=== PATIENT | female | born 1955 | race Caucasian/White ===

== ENCOUNTER 2020-02-23 12:23 | Inpatient (IN) | payer MEDICARE, MEDICAID, SELFPAY ==
[2020-02-23] VITALS (10 sets, daily range): BP systolic 80–133; BP diastolic 52–73; PULSE 91–108; RESP 16–18; TEMP 36.3–36.8; O2SAT 94–99; BMI 16.5
--- NOTE | 2020-02-23 13:02 | CTR_ITS ---
PROCEDURE INFORMATION: Exam: CT Chest Without Contrast Exam date and time: 02/23/2020 4:26 PM Age: 65 years old Clinical indication: Chest pain; Prior surgery; Additional info: ? Port infection TECHNIQUE: Imaging protocol: Computed tomography of the chest without contrast. Radiation optimization: All CT scans at this facility use at least one of these dose optimization techniques: automated exposure control; mA and/or kV adjustment per patient size (includes targeted exams where dose is matched to clinical indication); or iterative reconstruction. COMPARISON: No relevant prior studies available. RADIATION DOSE METRICS: Total DLP (mGy-cm): 303.69 FINDINGS: Tubes, catheters and devices: Right Infusaport catheter. Lungs: Densely consolidated segmental alveolar airspace disease posterior segment right upper lobe which could reflect pneumonia and/or atelectasis. Underlying neoplasm would be difficult to exclude with confidence. Evidence of left lower lobe and lingula bronchiolar disease with the tree in bud pattern consistent with either active or chronic bronchiolar disease. Small volume subsegmental consolidated alveolar airspace disease superior segment left lower lobe with air bronchograms which could reflect pneumonia and/or atelectasis. Noncalcified right lung pulmonary nodules the largest superior segment right lower lobe measuring approximately 13 mm in diameter. Concern for metastatic lung carcinoma. Advanced centrilobular emphysema. COPD/chronic bronchitis. Antecedent granulomatous disease. Pleural space: Unremarkable. No pneumothorax. No pleural effusion. Heart: Advanced 3 vessel coronary artery disease. No visible pericardial effusion. Cor pulmonale. Aorta: The thoracic aorta is nonaneurysmal. Moderate arterial sclerotic disease. Lymph nodes: Marginally prominent mediastinal lymph nodes. Bones/joints: Age-appropriate degenerative disease of the spine. Osteopenia/osteoporosis. No visible osteolytic or osteoblastic destructive process. Soft tissues: Cachexia. CT/CT chest wo con [id number] IMPRESSION: 1. Densely consolidated segmental alveolar airspace disease right upper lobe. 2. Left lower lobe and lingular bronchiolar disease. 3. Noncalcified right lung pulmonary nodules the largest superior segment right lower lobe with concern for metastatic lung carcinoma. 4. Subsegmental volume superior segment left lower lobe alveolar airspace disease. 5. Advanced centrilobular emphysema with COPD/chronic bronchitis. 6. Advanced 3 vessel coronary disease. 7. Cor pulmonale. 8. Cachexia. Radiation Dose CTDIVOL = (mGy): DLP = 303.69 (mGy-cm)
[2020-02-23 13:27] LABS: Basophils % 0.2 %; Eosinophils # 0.1 10^3/uL (0.0-0.8); Eosinophils % 0.4 %; Hematocrit 23.6 % (37.0-47.0); Hemoglobin 6.9 g/dL (11.5-15.3); Lymphocytes # 0.5 10^3/uL (0.8-4.8); Lymphocytes % 3.7 %; Mean Corpuscular HGB Conc 29.2 g/dL (30.0-36.0); Mean Corpuscular Hemoglobin 31.4 pg (28.0-34.0); Mean Corpuscular Volume 107.3 fL (81-99); Mean Platelet Volume 9.2 fL (7.4-10.4); Monocytes # 0.4 10^3/uL (0.2-0.9); Monocytes % 2.6 %; Neutrophils # 12.99 10^3/uL (1.8-7.7); Nucleated Red Blood Cells % 0 %; Platelet Count 152 10^3/cmm (130-400); Red Cell Distribution Width 20.3 % (12.1-15.1); White Blood Count 14.1 10^3/uL (4.0-10.0)
[2020-02-23 13:40] LABS: Alanine Aminotransferase < 5 U/L (0-33); Albumin Level 2.4 g/dL (3.5-5.2); Alkaline Phosphatase 154 IU/L (35-105); Anion Gap 14.8 (5-19); Aspartate Amino Transferase 7 U/L (0-32); Blood Urea Nitrogen 27 mg/dL (8-23); C Reactive Protein 162.6 mg/L (0.0-4.9); Calcium 8.1 mg/dL (8.5-10.5); Carbon Dioxide 22 mmol/L (22-29); Chloride 102 mmol/L (98-107); Globulin 4.7 g/dL (1.3-4.6); Glomerular Filtration Rate 23.6 mL/min (90-130); Glucose 109 mg/dL (65-115); Osmolality Calculated 282 mOsm/kg (285-295); Potassium 5.8 mmol/L (3.5-5.1); Sodium 133 mmol/L (136-145); Total Bilirubin 0.2 mg/dL (0.15-1.2); Total Protein 7.1 g/dL (6.6-8.7)
[2020-02-23 13:41] LABS: Lactate (Lactic Acid level) 1.8 mmol/L (0.5-2.2)
--- NOTE | 2020-02-23 15:57 | W.ED.SKABFB ---
HPI - Skin/Abscess/Foreign Bdy General: Chief complaint: Skin/Abscess/Foreign Body Stated complaint: POSSIBLE PORT INFECTION Time Seen by Provider: 02/23/20 12:31 Source: patient Mode of arrival: EMS Limitations: no limitations History of Present Illness: HPI narrative: Patient is a 65-year-old shelter resident with a history of lung cancer who was on chemotherapy until recently due to adverse effects of the chemotherapy. [facility] staff noticed that on the port that the patient has on her right chest wall there was erythema, pain, and erythema spreading along the track of the port. They were concerned about an infection so she was sent here to be evaluated. The patient denies a fever. Quality: burning Exacerbating factors: none Context: none Associated symptoms: Deny chills, fever(s), nausea or vomiting Review of Systems General: Reports: 10 or more systems reviewed and unremarkable except in HPI and below Const: Denies: fever(s), chills or body aches Eyes: Denies: change in vision or blurry vision ENMT: Denies: throat pain, enlarged tonsils, odynophagia, hoarseness, mouth pain or swelling of lips/tongue Card: Denies: palpitations, irregular heart rhythm, edema or swelling of feet/ankles Resp: Denies: dyspnea, productive cough or non-productive cough GI: Denies: abdominal pain, nausea or vomiting : Denies: flank pain, difficulty voiding, dysuria, urinary frequency, urinary urgency or urinary hesitancy Musc: Denies: neck pain, back pain or extremity swelling Skin/Breast: Reports: erythema and skin tenderness; Denies: rash or pruritus Neuro: Denies: headache(s), numbness in extremities or weakness in extremities Endo: Denies: polyuria, polydipsia or tired all the time Physical Exam Const: COMMON NORMALS: no acute distress, average body habitus, patient oriented x3, no limitations, healthy appearing, alert and well nourished HENMT: COMMON NORMALS: normocephalic, atraumatic and moist oral mucous membranes HEAD & SCALP: normocephalic and atraumatic Neck/C-Spine: COMMON NORMALS: no meningeal signs and no JVD Chest: OTHER: Central venous port on her right upper chest wall erythematous, with red streaking along the path of the cath toward her clavicle. It is tender, but no drainage noted. Resp: COMMON NORMALS: normal respiratory effort, No retractions, No use of accessory muscles, clear to auscultation bilaterally and percussion normal AUSCULTATION: clear to auscultation bilaterally PERCUSSION: percussion normal Cardio: COMMON NORMALS: no JVD, regular rate, regular rhythm, S1 normal heart sound present, S2 normal heart sound present, No gallops present (Cardio), No clicks present (Cardio), No murmurs present (Cardio), No rub (Cardio) and Peripheral pulses 2+ throughout RATE: regular rate RHYTHM: regular rhythm HEART SOUNDS: S1 normal heart sound present and S2 normal heart sound present PERIPHERAL PULSES: Peripheral pulses 2+ throughout GI: COMMON NORMALS: Normal to inspection, nondistended, normoactive bowel sounds present, Soft to palpation, non-tender, No hepatosplenomegaly present, no masses and no bruits PALPATION: Yes Soft to palpation and Yes No hepatosplenomegaly present Extremity: COMMON NORMALS: normal to inspection, full ROM, capillary refill normal, no calf tenderness and no pedal edema Neuro: COMMON NORMALS: patient oriented x3 SENSORIUM/ORIENTATION: Yes alert MENINGEAL SIGNS: Yes no meningeal signs Skin: COMMON NORMALS: no rashes or lesions noted, no wounds, turgor normal, no jaundice, no petechiae and no mottling GENERAL SKIN EXAM: no rashes or lesions noted and turgor normal Course ED course: Patient with what appears to be a central venous catheter infection. She has a leukocytosis, but is not septic. During her stay in the emergency department she had some delirium and needed some intramuscular antipsychotic to calm her down. She was given a dose of intravenous vancomycin. She is admitted for further evaluation and management. Consultations: Consultation #1: Dr. Lopez, hospitalist. She kindly accepted patient to her service Vital Signs: Vital signs: Vital Signs Temperature 97.4 F L 02/23/20 22:34 Pulse Rate 102 H 02/23/20 22:34 Respiratory Rate 18 02/23/20 22:34 Blood Pressure 88/55 02/23/20 22:34 Pulse Oximetry 98 02/23/20 22:34 MDM - Skin/Abscess/Foreign Bdy MDM Narrative: Medical decision making narrative: Patient with a central venous catheter infection. And who is admitted for further evaluation and management. She had an episode of delirium in the emergency department but it was well controlled with intramuscular Zyprexa. Evaluation also shows that he has pneumonia, and she was also severely anemic requiring blood transfusion. Medical Records: Attestation: I reviewed the patient's medical records. Lab Data: Attestation: I reviewed the patient's lab results. Labs: Lab Results 02/23/20 02/23/20 02/23/20 Range/Units 13:15 13:15 13:15 WBC 14.1 H (4.0-10.0) 10^3/ uL RBC 2.20 L (4.1-5.3) 10^6/u L Hgb 6.9 L (11.5-15.3) g/dL Hct 23.6 L (37.0-47.0) % MCV 107.3 H (81-99) fL MCH 31.4 (28.0-34.0) pg MCHC 29.2 L (30.0-36.0) g/dL RDW 20.3 H (12.1-15.1) % Plt Count 152 (130-400) 10^3/c mm MPV 9.2 (7.4-10.4) fL Neut % (Auto) 92.0 % Lymph % (Auto) 3.7 % Hopkins % (Auto) 2.6 % Eos % (Auto) 0.4 % Baso % (Auto) 0.2 % Neut # (Auto) 12.99 H (1.8-7.7) 10^3/u L Lymph # (Auto) 0.5 L (0.8-4.8) 10^3/u L Hopkins # (Auto) 0.4 (0.2-0.9) 10^3/u L Eos # (Auto) 0.1 (0.0-0.8) 10^3/u L Baso # (Auto) 0.0 (0.0-0.1) 10^3/u L Nucleated RBC % (a uto) 0 % Nucleated RBCs # 0.0 /100WBC Sodium 133 L (136-145) mmol/L Potassium 5.8 H (3.5-5.1) mmol/L Chloride 102 (98-107) mmol/L Carbon Dioxide 22 (22-29) mmol/L Anion Gap 14.8 (5-19) BUN 27 H (8-23) mg/dL Creatinine 2.1 H (0.5-0.9) mg/dL GFR Calculation 23.6 L (90-130) mL/min Glucose 109 (65-115) mg/dL Calculated Osmolal ity 282 L (285-295) mOsm/k g Lactate 1.8 (0.5-2.2) mmol/L Calcium 8.1 L (8.5-10.5) mg/dL Total Bilirubin 0.2 (0.15-1.2) mg/dL AST 7 (0-32) U/L ALT < 5 (0-33) U/L Alkaline Phosphata se 154 H (35-105) IU/L C-Reactive Protein 162.6 H (0.0-4.9) mg/L Total Protein 7.1 (6.6-8.7) g/dL Albumin 2.4 L (3.5-5.2) g/dL Globulin 4.7 H (1.3-4.6) g/dL Blood Type Rho(D) Type Antibody Screen Crossmatch 02/23/20 Range/Units 16:48 WBC (4.0-10.0) 10^3/ uL RBC (4.1-5.3) 10^6/u L Hgb (11.5-15.3) g/dL Hct (37.0-47.0) % MCV (81-99) fL MCH (28.0-34.0) pg MCHC (30.0-36.0) g/dL RDW (12.1-15.1) % Plt Count (130-400) 10^3/c mm MPV (7.4-10.4) fL Neut % (Auto) % Lymph % (Auto) % Hopkins % (Auto) % Eos % (Auto) % Baso % (Auto) % Neut # (Auto) (1.8-7.7) 10^3/u L Lymph # (Auto) (0.8-4.8) 10^3/u L Hopkins # (Auto) (0.2-0.9) 10^3/u L Eos # (Auto) (0.0-0.8) 10^3/u L Baso # (Auto) (0.0-0.1) 10^3/u L Nucleated RBC % (a uto) % Nucleated RBCs # /100WBC Sodium (136-145) mmol/L Potassium (3.5-5.1) mmol/L Chloride (98-107) mmol/L Carbon Dioxide (22-29) mmol/L Anion Gap (5-19) BUN (8-23) mg/dL Creatinine (0.5-0.9) mg/dL GFR Calculation (90-130) mL/min Glucose (65-115) mg/dL Calculated Osmolal ity (285-295) mOsm/k g Lactate (0.5-2.2) mmol/L Calcium (8.5-10.5) mg/dL Total Bilirubin (0.15-1.2) mg/dL AST (0-32) U/L ALT (0-33) U/L Alkaline Phosphata se (35-105) IU/L C-Reactive Protein (0.0-4.9) mg/L Total Protein (6.6-8.7) g/dL Albumin (3.5-5.2) g/dL Globulin (1.3-4.6) g/dL Blood Type A Positive Rho(D) Type Positive Antibody Screen Negative Crossmatch See Detail Imaging Data^: CT Chest: Attestation: I personally reviewed and interpreted this imaging study as follows: Radiologist's impression: [place] [address] CT Scan Report Signed Patient: Jerica Whitley AUnit #: [id number] : 4Acct#:[id number] Age/Sex: 65 / FADM Date: 02/23/20 Loc: [facility]/Bed: Attending Dr: Ordering Provider/Ordering MD: Demi Saavedra MD, [facility] [place] Date of Service: 02/23/20 Procedure(s): CT chest con [id number] Accession Number(s): [id number] Report Number: [id number] PROCEDURE INFORMATION: Exam: CT Chest Without Contrast Exam date and time: 02/23/2020 4:26 PM Age: 65 years old Clinical indication: Chest pain; Prior surgery; Additional info: ? Port infection TECHNIQUE: Imaging protocol: Computed tomography of the chest without contrast. Radiation optimization: All CT scans at this facility use at least one of these dose optimization techniques: automated exposure control; mA and/or kV adjustment per patient size (includes targeted exams where dose is matched to clinical indication); or iterative reconstruction. COMPARISON: No relevant prior studies available. RADIATION DOSE METRICS: Total DLP (mGy-cm): 303.69 FINDINGS: Tubes, catheters and devices: Right Infusaport catheter. Lungs: Densely consolidated segmental alveolar airspace disease posterior segment right upper lobe which could reflect pneumonia and/or atelectasis. Underlying neoplasm would be difficult to exclude with confidence. Evidence of left lower lobe and lingula bronchiolar disease with the tree in bud pattern consistent with either active or chronic bronchiolar disease. Small volume subsegmental consolidated alveolar airspace disease superior segment left lower lobe with air bronchograms which could reflect pneumonia and/or atelectasis. Noncalcified right lung pulmonary nodules the largest superior segment right lower lobe measuring approximately 13 mm in diameter. Concern for metastatic lung carcinoma. Advanced centrilobular emphysema. COPD/chronic bronchitis. Antecedent granulomatous disease. Pleural space: Unremarkable. No pneumothorax. No pleural effusion. Heart: Advanced 3 vessel coronary artery disease. No visible pericardial effusion. Cor pulmonale. Aorta: The thoracic aorta is nonaneurysmal. Moderate arterial sclerotic disease. Lymph nodes: Marginally prominent mediastinal lymph nodes. Bones/joints: Age-appropriate degenerative disease of the spine. Osteopenia/osteoporosis. No visible osteolytic or osteoblastic destructive process. Soft tissues: Cachexia. CT/CT chest wo con [id number] IMPRESSION: 1. Densely consolidated segmental alveolar airspace disease right upper lobe. 2. Left lower lobe and lingular bronchiolar disease. 3. Noncalcified right lung pulmonary nodules the largest superior segment right lower lobe with concern for metastatic lung carcinoma. 4. Subsegmental volume superior segment left lower lobe alveolar airspace disease. 5. Advanced centrilobular emphysema with COPD/chronic bronchitis. 6. Advanced 3 vessel coronary disease. 7. Cor pulmonale. 8. Cachexia. Radiation Dose CTDIVOL = (mGy): DLP = 303.69 (mGy-cm) Dictated By:Erlin Ramos Signed By:Erlin RamosSigned Date/Time:02/23/205 DD/ Discharge Plan Discharge Patient Disposition: Admitted As Inpatient Admit Provider: Shila Lopez Clinical Impression: Metastasis from cervical cancer Infection of central venous catheter Qualifiers: Encounter type: initial encounter Qualified Code(s): T80.219A - Unspecified infection due to central venous catheter, initial encounter Pneumonia Qualifiers: Pneumonia type: due to unspecified organism Laterality: right Lung location: upper lobe of lung Qualified Code(s): J18.9 - Pneumonia, unspecified organism Condition: Stable Coding Level of Care Code ED Bailing Machine Operator for Riky Mortensen
--- NOTE | 2020-02-23 16:32 | PC.NURSE ---
patient getting very agitated emd informed and orders recieved
[2020-02-23] MEDS: OLANZapine 10 mg VIAL IM (16:37)
[2020-02-23] MEDS: vancomycin 750 MG in sodium chloride 0.9% 250 ML 250 MG IV (16:48)
--- NOTE | 2020-02-23 19:04 | PC.NURSE ---
only 5 mg zyprexa given
--- NOTE | 2020-02-23 22:38 | PC.NURSE ---
1 unit leukocyte poor rbc infusing attempt to call daughter met with answering machine no message left
--- NOTE | 2020-02-23 23:59 | PM.HP ---
Providers/Chief Complaint Admitting Physician: Shila Lopez MD Chief Complaint: POSSIBLE PORT INFECTION History of Present Illness Jerica Whitley is a 65 year old female who was sent from [facility] to the emergency room due to concern about possibility of an infected Port-A-Cath. I am not really able to get much specific information from her. I did call the facility and spoke with the nurse. This nurse had worked with the patient over the weekend. Mrs. Whitley evidently began to get more confused over the weekend. At that time her Port-A-Cath seemed to be okay. Today it was noted that she had some red streaks around the site prompting the visit to the emergency room. While she was not seen at [facility] today I am not entirely clear. She has never been hospitalized here before. I did request that the records available at [facility] be sent and I have had an opportunity to review them. There are some clear inaccuracies in the records, such as documentation of normal skin when she has obvious wounds that have been around for a while. Nursing staff reports that she is able to feed herself a soft mechanical diet. She requires assistance with pretty much all the rest of her ADLs. She has been needing a Sherley lift for some time but within the last week or so had been able to get up a few times without. She came to [facility] I believe around 26 January. From what I can gather patient has a history of cervical cancer. She had previously been on treatment but there are notations that treatment was stopped in April. I do not know if that was because a course of treatment was completed or if it was decided not to continue it. She evidently had repeat PET scanning done in the early part of the year however that showed evidence of metastatic disease to lung and bone. I have records from biopsy of the lung mass done in December of this year though I did not see the actual results. It looks like she was started on chemotherapy after that and had an admission at [facility] for chemotherapy-induced pancytopenia. She required transfusion of blood during that hospital stay and was deconditioned and after that she went to [facility] after that. According to the nurse at [facility] she had an appointment scheduled with oncologist in [place] tomorrow. I was able to find that she was to be seen at the [facility] women's oncology on February 23 at 8:30 in the morning. Looks like she was planned to have an infusion after that which I am suspecting was for chemotherapy. The nurse I spoke to briefly at [facility] stated that she had not had any chemotherapy that that nurse was aware of since arriving at [facility] though I do not have a way to confirm that currently. Information documented here is from available records as patient really cannot provide anything currently. Review of Systems General: Reports: ROS unobtainable due to mental status Medications/Allergies Home Medications Medication Instructions Recorded Confirmed Last Taken Type Magic Mouthwash 15 ml PO TID PRN 02/23/20 02/24/20 Unknown History Morphine Sulfate Anna 20mg/Ml 0.2 ml PO Q4H PRN 02/23/20 02/23/20 Unknown History atorvastatin [Lipitor] 80 mg PO BEDTIME 02/23/20 02/23/20 02/22/20 History cholecalciferol (vitamin D3) 10 mcg PO DAILY 02/23/20 02/23/20 02/23/20 History [Vitamin D3] ferrous sulfate 325 mg PO BID 02/23/20 02/23/20 02/23/20 History fluticasone propionate [Flonase 2 spray INTRANASAL DAILY 02/23/20 02/23/20 02/23/20 History Allergy Relief] isosorbide mononitrate 15 mg PO DAILY 02/23/20 02/23/20 02/23/20 History loperamide [Imodium A-D] 2 mg PO Q6H PRN 02/23/20 02/23/20 Unknown History lorazepam [Lorazepam Intensol] See Rx Instructions .ROUTE .COMPLEX 02/23/20 02/23/20 Unknown History magnesium oxide [MagOx] 400 mg PO BID 02/23/20 02/23/20 02/23/20 History nitroglycerin [Nitrostat] 0.4 mg SUBLINGUAL Q5M PRN 02/23/20 02/23/20 Unknown History ondansetron HCl [Zofran] 4 mg PO Q4H PRN 02/23/20 02/23/20 Unknown History polyethylene glycol 3350 [Miralax] 17 g PO Q3D 02/23/20 02/23/20 02/22/20 History potassium chloride 20 meq PO DAILY 02/23/20 02/23/20 02/23/20 History sulfamethoxazole-trimethoprim 0.5 tab PO BID 02/23/20 02/23/20 02/23/20 History [Bactrim DS] tramadol 50 mg PO Q6H 02/23/20 02/23/20 02/23/20 History trazodone 50 mg PO BEDTIME 02/23/20 02/23/20 02/22/20 History Allergies Allergy/AdvReac Type Severity Reaction Status Date / Time acetaminophen [From Tylenol] Allergy ADR-Halluci Verified 02/23/20 12:35 nating cefepime Allergy Unknown Verified 02/23/20 12:35 Summit And Derivatives Allergy ADR-Vomitin Verified 02/23/20 12:35 g Penicillins Allergy ALGY-Swell Verified 02/23/20 12:35 Lip/Tongue/Throat piperacillin [From Zosyn] Allergy ADR-Halluci Verified 02/23/20 12:35 nating tazobactam [From Zosyn] Allergy ADR-Halluci Verified 02/23/20 12:35 nating dupree pepper Allergy ALGY-Swell Uncoded 02/23/20 12:35 Lip/Tongue/Throat blue cheese Allergy ALGY-Swell Uncoded 02/23/20 12:35 Lip/Tongue/Throat C-500 Allergy Unknown Uncoded 02/23/20 12:35 PFSH Acute PFSH: Medical History Antineoplastic chemotherapy induced pancytopenia CAD (coronary artery disease) Cervical cancer Chronic kidney disease Diabetes mellitus, type II Unclear if this is an active or accurate diagnosis but was listed in available records History of anesthesia complications History of osteomyelitis History of paroxysmal supraventricular tachycardia History of radiation therapy Hyperlipidemia Hypertension Iron deficiency anemia Peripheral arterial disease With history of critical limb ischemia requiring intervention although details are not known Surgical History Amputation of one or more toes All the toes on right foot History of colonoscopy (~05/2019) History of esophagogastroduodenoscopy (EGD) (~05/2019) History of lung biopsy (~12/2019) History of partial mastectomy History of rectal surgery History of vaginal surgery Details not clear presently but has had multiple vaginal procedures. Do not see clear evidence of hysterectomy and available records Port-A-Cath in place (~10/2019) Social History [facility] Information: Other than knowing patient resides in a group home, social and family history not otherwise able to be obtained presently Vitals/I&O/Wt Last Vital Signs Temp 97.5 F L 02/23/20 23:41 Pulse 98 02/23/20 23:41 Resp 17 02/23/20 23:41 BP 113/67 02/23/20 23:41 Pulse Ox 99 02/23/20 23:41 02/23/20 02/23/20 02/24/20 14:59 22:59 06:59 Intake Total 0 / 0 Balance 0 / 0 Weight last 48 hrs Weight 43.636 kg Physical Exam Const: OTHER: Patient is awake and will open eyes. She follows commands but is not able to answer questions. She says I do not know to everything. She complains of pain anywhere she is touched. HENMT: OTHER: Alopecia noted, some bitemporal wasting but otherwise normocephalic, dry mucous membranes, no oral ulcers noted presently Eye: OTHER: Pupils are reactive, conjunctive are not inflamed Neck/C-Spine: OTHER: Supple, no lymphadenopathy Chest: OTHER: Port-A-Cath is in place in the right upper chest. Just above the Port-A-Cath access area there is a scab. The scab is loose and underneath the scab you can actually see through the skin the actual Port-A-Cath device. It has not been accessed. I am not able to express any purulent material from around here but it is erythematous with evidence of recent desquamation over the Port-A-Cath and up the neck. There is a red streak outlining the device area which is palpable that goes up into the neck. I do not see any other red streaks elsewhere. The erythema is not that warm to touch. Resp: OTHER: Clear to auscultation bilaterally without any rales or rhonchi noted, no accessory muscle use Cardio: OTHER: Regular rate and rhythm, no murmurs gallops or rubs. Pulses equal throughout GI: OTHER: Abdomen soft, nontender, nondistended with positive bowel sounds : OTHER: Deferred Extremity: NARRATIVE EXTREMITY EXAM: No cyanosis, clubbing or edema, no acute synovitis Neuro: OTHER: Moves all extremities, speech is clear although answers to questions are not appropriate Psych: OTHER: Confused Skin: OTHER: Open ulceration with granulation tissue on the lateral aspect of the left ankle approximately a centimeter in diameter. Had foam dressing covered with OPTi foam on it. The area under the OPTi foam is red in a square pattern with slight warmth. No drainage is noted from this site. There is no red streaks beyond the area of the Square OPTi foam pad. On the right foot patient has bruising about 2.5-3 cm in diameter to the heel as well as a small approximately 1-1/2 cm diameter area of bruising on the lateral aspect of the right foot where it ends. There is 1/2 cm area of ecchymosis on the distal end of the first phalanx or rather where the first phalanx would be. Data : 02/23/20 13:15 02/23/20 13:15 Other Labs: Laboratory Tests 02/23/20 02/23/20 02/23/20 13:15 13:15 13:15 Neut # (Auto) 12.99 H Lactate 1.8 Calcium 8.1 L Total Bilirubin 0.2 AST 7 ALT < 5 Alkaline Phosphatase 154 H Albumin 2.4 L Micro: Microbiology 02/23/20 13:10 Blood Culture - Preliminary Blood SPECIMEN COLLECTED 02/23/20 13:15 Blood Culture - Preliminary Blood SPECIMEN COLLECTED A&P Assessment and plan (1) Acute encephalopathy: Multifactorial with combination of metabolic and possibly toxic encephalopathy prior to presenting to the emergency room. She received doses of Ativan and Geodon in the emergency room which may have further impacted mental status and cognition. From what I can gather the confusion is new. Available records do not indicate any evidence of intracranial metastases. Status: Acute (2) Infection due to Port-A-Cath: It was reported to me by nursing staff that the redness just appeared today. On examination however there is evidence of desquamation and there is also scabbing above the Port-A-Cath insertion site. I do not think that what ever is going on at the Port-A-Cath site is new. I am able to visualize the Port-A-Cath behind the scab that is present. No purulence is noted in this opening. The site has not been accessed thus far. Review of records from [facility] shows that she has required midline catheter placement multiple times. It looks like the Port-A-Cath was placed in October of this year. I presume it was done at [facility] though do not have confirmation of this. Status: Acute Qualifiers: Encounter type: initial encounter Qualified Code(s): T80.219A - Unspecified infection due to central venous catheter, initial encounter (3) Acute kidney injury: In a patient with a history of chronic kidney disease. I suspect she has chronic kidney disease stage II though it may be stage III at baseline. Most recently available comparative labs showed BUN and creatinine 23/1.47 on January 23. Clinically she appears dry. I am not able to verify when last chemotherapy was but she could have a change related to that. She has been on Bactrim according to facility records which might account for the acute kidney injury and hyperkalemia apart from everything else. Status: Acute (4) Macrocytic anemia: With drop from baseline. Most recent comparative labs from February 04 showed hemoglobin of 7.9 and hematocrit of 24. At that time patient was still recovering from chemotherapy induced pancytopenia, with improved H&H, platelet count and white blood count. Platelet count is currently acceptable and white count is further elevated. I do not have sufficient information to know when her last chemotherapy was though I do have indication that next planned transfusion was for tomorrow. Status: Acute (5) Ulcer of left ankle: Presumably has been present for some time as records from earlier this year at [facility] indicate that she has a known history of osteomyelitis of the ankle in December of this year. Those records indicate the right ankle but I do not see wounds on the right ankle and assume it should have been left. I do not have any evidence of work-up or evaluation around this otherwise. I am somewhat wondering if this location was an area in which bony metastases was suspected although it would be a bit odd. I just found it strange that on records about her lung biopsy was where I was able to most clearly find that the osteomyelitis of the ankle was A, present and B, had been previously identified. From what we can gather she has been getting PolyMem silver to the wound at the facility. This was present on admission Status: Chronic Qualifiers: Non-pressure ulcer stage: unspecified non-pressure ulcer stage Qualified Code(s): L97.329 - Non-pressure chronic ulcer of left ankle with unspecified severity (6) Cervical cancer: Status: Chronic Qualifiers: Malignant neoplasm of cervix location: unspecified location Qualified Code(s): C53.9 - Malignant neoplasm of cervix uteri, unspecified (7) Moderate protein-calorie malnutrition: Status: Chronic (8) Hypertension: Chronically on isosorbide Status: Chronic Qualifiers: Hypertension type: unspecified Qualified Code(s): I10 - Essential (primary) hypertension (9) Hyperlipidemia: Looks to chronically be on statin therapy Status: Chronic Qualifiers: Hyperlipidemia type: unspecified Qualified Code(s): E78.5 - Hyperlipidemia, unspecified (10) Diabetes mellitus, type II: Diagnosis and patient records from [facility] although he does not appear to be on treatment. Blood sugars are currently acceptable level. I do not know if treatment was stopped because of her cancer or because of loss of weight and other clinical conditions or if diabetes is actually entered in error on records from outside source. 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 Diabetes mellitus complication status: with kidney complications Diabetes mellitus complication detail: with chronic kidney disease Chronic kidney disease stage: unspecified stage Qualified Code(s): E11.22 - Type 2 diabetes mellitus with diabetic chronic kidney disease (11) History of MRSA infection: Status: Chronic Additional A&P Information Several areas of bruising, decubiti on the right foot present on admission History of coronary artery disease and what looks to be severe peripheral arterial disease primarily of the right lower extremity although details of either are not currently known. Inpatient admission IV antibiotics with vancomycin and Levaquin currently As were collected in the emergency room although I am not sure if any were collected directly from the Port-A-Cath site Will discuss with surgery to take a look at the Port-A-Cath site and give their opinion about the open area through which I can see the Port-A-Cath material Wound care is to continue to the left ankle ulceration with equivalent of PolyMem silver and OPTi foam Need to keep right foot elevated off of bed in addition to the left Check urinalysis IV fluids Transfusion of packed red blood cells was started in the emergency room Serial neuro exams Fall precautions Sliding scale insulin and Accu-Cheks given reported history of diabetes although does not look like she will need any now Try to minimize further sedating medications as able however with known chronic pain related to her cancer will keep her on some as needed medications Continue home statin therapy although I have held isosorbide currently with current blood pressures as they are Recheck laboratory studies Need to see if we can get in touch with the women's oncology clinic tomorrow to get more details during the daytime hours when the clinics open. The phone number there looks to be [phone]. Supportive care otherwise Allow natural as per paperwork from [facility] for DVT prophylaxis, no pharmacological DVT prophylaxis secondary to anemia Need to make sure that we are in line with plans of care going forward room and get a chance to speak to her daughters who have power of business attorney Attestations Medical Necessity Statement*: Anticipated stay greater than 2 midnights in a patient with known cancer presenting with encephalopathy. She reportedly normally can feed herself and answer questions appropriately what she cannot do at the moment. I suspect that this is multifactorial in nature stemming from acute kidney injury possibly related to treatment with Bactrim plus or minus an acute infection in the setting of her chronic medical issues. 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
[2020-02-24] VITALS (15 sets, daily range): BP systolic 90–130; BP diastolic 56–78; PULSE 69–102; RESP 12–18; TEMP 36.1–36.9; O2SAT 94–100
[2020-02-24] MEDS: sodium chloride 0.9% 1,000 ML 100 ML IV ×2 (01:10→18:27)
[2020-02-24] MEDS: TRAMadol 50 mg Tablet PO (01:10)
--- NOTE | 2020-02-24 03:42 | PC.PHAR ---
Vancomycin is dosed at 750mg IVPB every 48 hours to produce a predicted trough level of 15.27 (population based pharmacokinetic analysis). A trough level has been ordered from the lab to be obtained before the third dose to confirm and adjust if needed.
[2020-02-24 06:04] LABS: Basophils % 0.3 %; Eosinophils # 0.1 10^3/uL (0.0-0.8); Eosinophils % 0.5 %; Hematocrit 27.6 % (37.0-47.0); Hemoglobin 8.1 g/dL (11.5-15.3); Lymphocytes # 0.7 10^3/uL (0.8-4.8); Lymphocytes % 5.8 %; Mean Corpuscular HGB Conc 29.3 g/dL (30.0-36.0); Mean Corpuscular Hemoglobin 29.9 pg (28.0-34.0); Mean Corpuscular Volume 101.8 fL (81-99); Mean Platelet Volume 9.2 fL (7.4-10.4); Monocytes # 0.4 10^3/uL (0.2-0.9); Monocytes % 3.5 %; Neutrophils # 10.37 10^3/uL (1.8-7.7); Neutrophils % 89.1 %; Nucleated Red Blood Cells % 0 %; Platelet Count 127 10^3/cmm (130-400); Red Blood Count 2.71 10^6/uL (4.1-5.3); Red Cell Distribution Width 23.2 % (12.1-15.1); White Blood Count 11.6 10^3/uL (4.0-10.0)
--- NOTE | 2020-02-24 06:11 | PM.CONSULT ---
Providers/Reason For Consult Consulting Physican/Specialty*: Reji Keller MD Reason for Consult*: Infection related to right upper chest Port-A-Cath Attending Physician: Shila Lopez MD History of Present Illness History of Present Illness Chief Complaint: Problem with the port History of present illness: Ms Jerica Whitley is a 65 year old female had Port-A-Cath placed in [facility] back in October 2019 for chemotherapy related to her cervical cancer. Patient currently is not receiving any chemotherapy and apparently over the past week it got infected and patient is a senior living resident currently, and to my understanding patient got confused over the weekend. She was admitted on the hospitalist service for further care. Not much history obtained from the patient currently. CT scan of the chest showed: Lungs: Densely consolidated segmental alveolar airspace disease posterior segment right upper lobe which could reflect pneumonia and/or atelectasis. Underlying neoplasm would be difficult to exclude with confidence. Evidence of left lower lobe and lingula bronchiolar disease with the tree in bud pattern consistent with either active or chronic bronchiolar disease. Small volume subsegmental consolidated alveolar airspace disease superior segment left lower lobe with air bronchograms which could reflect pneumonia and/or atelectasis. Noncalcified right lung pulmonary nodules the largest superior segment right lower lobe measuring approximately 13 mm in diameter. Concern for metastatic lung carcinoma. Advanced centrilobular emphysema. COPD/chronic bronchitis. Antecedent granulomatous disease. Pleural space: Unremarkable. No pneumothorax. No pleural effusion. Heart: Advanced 3 vessel coronary artery disease. No visible pericardial effusion. Cor pulmonale. Aorta: The thoracic aorta is nonaneurysmal. Moderate arterial sclerotic disease. Lymph nodes: Marginally prominent mediastinal lymph nodes. Bones/joints: Age-appropriate degenerative disease of the spine. Osteopenia/osteoporosis. No visible osteolytic or osteoblastic destructive process. Soft tissues: Cachexia. CT/CT chest wo con [id number] IMPRESSION: 1. Densely consolidated segmental alveolar airspace disease right upper lobe. 2. Left lower lobe and lingular bronchiolar disease. 3. Noncalcified right lung pulmonary nodules the largest superior segment right lower lobe with concern for metastatic lung carcinoma. 4. Subsegmental volume superior segment left lower lobe alveolar airspace disease. 5. Advanced centrilobular emphysema with COPD/chronic bronchitis. 6. Advanced 3 vessel coronary disease. 7. Cor pulmonale. 8. Cachexia. Review of Systems General: Reports: 10 or more systems reviewed and unremarkable except in HPI and below Meds/Allergies Home Medications and Allergies Home Medications Medication Instructions Recorded Confirmed Last Taken Type Magic Mouthwash 15 ml PO TID PRN 02/23/20 02/24/20 Unknown History Morphine Sulfate Anna 20mg/Ml 0.2 ml PO Q4H PRN 02/23/20 02/23/20 Unknown History atorvastatin [Lipitor] 80 mg PO BEDTIME 02/23/20 02/23/20 02/22/20 History cholecalciferol (vitamin D3) 10 mcg PO DAILY 02/23/20 02/23/20 02/23/20 History [Vitamin D3] ferrous sulfate 325 mg PO BID 02/23/20 02/23/20 02/23/20 History fluticasone propionate [Flonase 2 spray INTRANASAL DAILY 02/23/20 02/23/20 02/23/20 History Allergy Relief] isosorbide mononitrate 15 mg PO DAILY 02/23/20 02/23/20 02/23/20 History loperamide [Imodium A-D] 2 mg PO Q6H PRN 02/23/20 02/23/20 Unknown History lorazepam [Lorazepam Intensol] See Rx Instructions .ROUTE .COMPLEX 02/23/20 02/23/20 Unknown History magnesium oxide [MagOx] 400 mg PO BID 02/23/20 02/23/20 02/23/20 History nitroglycerin [Nitrostat] 0.4 mg SUBLINGUAL Q5M PRN 02/23/20 02/23/20 Unknown History ondansetron HCl [Zofran] 4 mg PO Q4H PRN 02/23/20 02/23/20 Unknown History polyethylene glycol 3350 [Miralax] 17 g PO Q3D 02/23/20 02/23/20 02/22/20 History potassium chloride 20 meq PO DAILY 02/23/20 02/23/20 02/23/20 History sulfamethoxazole-trimethoprim 0.5 tab PO BID 02/23/20 02/23/20 02/23/20 History [Bactrim DS] tramadol 50 mg PO Q6H 02/23/20 02/23/20 02/23/20 History trazodone 50 mg PO BEDTIME 0902/23/20 02/22/20 History Allergies Allergy/AdvReac Type Severity Reaction Status Date / Time acetaminophen [From Tylenol] Allergy ADR-Halluci Verified 02/23/20 12:35 nating cefepime Allergy Unknown Verified 02/23/20 12:35 Barber And Derivatives Allergy ADR-Vomitin Verified 02/23/20 12:35 g Penicillins Allergy ALGY-Swell Verified 02/23/20 12:35 Lip/Tongue/Throat piperacillin [From Zosyn] Allergy ADR-Halluci Verified 02/23/20 12:35 nating tazobactam [From Zosyn] Allergy ADR-Halluci Verified 02/23/20 12:35 nating dupree pepper Allergy ALGY-Swell Uncoded 02/23/20 12:35 Lip/Tongue/Throat blue cheese Allergy ALGY-Swell Uncoded 02/23/20 12:35 Lip/Tongue/Throat C-500 Allergy Unknown Uncoded 02/23/20 12:35 Current Medications Current Medications Generic Name Dose Route Start Last Admin Trade Name Freq PRN Reason Stop Dose Admin Sodium Chloride 1,000 mls @ 100 mls/hr 02/23/20 23:00 02/24/20 01:10 Sodium Chloride 0.9% IV 100 mls/hr .Q10H CINTIA Administration PFSH Acute PFSH: Medical History Antineoplastic chemotherapy induced pancytopenia CAD (coronary artery disease) Cervical cancer Chronic kidney disease Diabetes mellitus, type II Unclear if this is an active or accurate diagnosis but was listed in available records History of anesthesia complications History of osteomyelitis History of paroxysmal supraventricular tachycardia History of radiation therapy Hyperlipidemia Hypertension Iron deficiency anemia Peripheral arterial disease With history of critical limb ischemia requiring intervention although details are not known Surgical History Amputation of one or more toes All the toes on right foot History of colonoscopy (~05/2019) History of esophagogastroduodenoscopy (EGD) (~05/2019) History of lung biopsy (~12/2019) History of partial mastectomy History of rectal surgery History of vaginal surgery Details not clear presently but has had multiple vaginal procedures. Do not see clear evidence of hysterectomy and available records Port-A-Cath in place (~10/2019) Social History Housing: Jail Vitals/I&O/Wt Last Vital Signs Temp 97.6 F 02/24/20 04:00 Pulse 88 02/24/20 04:00 Resp 16 02/24/20 04:00 BP 107/67 02/24/20 04:00 Pulse Ox 96 02/24/20 04:00 02/23/20 02/23/20 02/24/20 14:59 22:59 06:59 Intake Total 0 / 0 350 / 350 Output Total 0 / 0 Balance 0 / 0 350 / 350 Weight last 48 hrs Weight 96 lb 3.2 oz Physical Exam Narrative: EXAM NARRATIVE: Patient is conscious alert oriented X3 BMI 16.5 Head and neck examination PERRLA no masses no cervical lymphadenopathy no jaundice Cardiac examination audible S1-S2 no murmurs no gallops no arrhythmias Physical examination was done in the presence of female department of natural resources officer JORDANA Bae Chest is clear bilateral,abscence of Rhonchi or wheezes,no surgical emphysema Right upper chest port in place with overlying erythematous skin and a scab is appreciated No evidence of discharge Abdomen nontender nondistended soft no organomegaly guarding or rigidity/no signs of peritonitis Extremities no cyanosis no clubbing no edema Data Micro: Micro: Microbiology 02/23/20 13:10 Blood Culture - Pr eliminary Blood SPECIMEN [facility] SHENA 02/23/20 13:15 Blood Culture - Pr eliminary Blood SPECIMEN [facility] A&P Assessment and plan (1) Infection due to Port-A-Cath: Plan of care; After history physical examination and reviewing the chart, I counseled the patient for Port-A-Cath explantation today, indications, risks including pneumothorax and injury of major vascular structures, benefits,indications and alternatives were all discussed with the patient, patient understands and is interested to proceed. Rationale was carefully and clearly discussed with the patient.Appropriate informed consent have been reviewed and signed. We will make sure that the patient's power of defense attorney is involved in the decision-making Thank you for consulting general surgery to participate taking care of Ms. Whitley Status: Acute Consult Attestations Medical Necessity Statement: Ongoing inpatient hospitalization for continuity of antimicrobial therapy and follow on cultures obtained after port removal Time Spent in Patient Care: (>than 50% of time spent in counselling and/or direct pt care on unit). Coding Level of Care Code Acute Psych Coordinator for Chg Fwd Diagnoses Infection due to Port-A-Cath T80.219A
[2020-02-24 06:36] LABS: Anion Gap 13.2 (5-19); Blood Urea Nitrogen 29 mg/dL (8-23); Calcium 7.7 mg/dL (8.5-10.5); Carbon Dioxide 21 mmol/L (22-29); Chloride 106 mmol/L (98-107); Glomerular Filtration Rate 21.2 mL/min (90-130); Glucose 80 mg/dL (65-115); Osmolality Calculated 285 mOsm/kg (285-295); Potassium 5.2 mmol/L (3.5-5.1); Sodium 135 mmol/L (136-145)
[2020-02-24 06:39] LABS: Glucose Point of Care 75 mg/dL (70-110)
[2020-02-24 07:14] LABS: Add Urine Microscopic? YES; Bacteria Urine 1+ /hpf; Bilirubin Urine Neg (Negative); Blood Urine 3+ (Negative); Glucose Urine UA Norm (Normal); Ketones Urine Negative (Negative); Leukocyte Esterase Urine 2+ (Negative); Nitrate Urine Negative (Negative); Protein Urine Trace (Negative); Specific Gravity, Urine 1.005 (1.005-1.030); Squamous Epithelial Cell Urine 0-4 /hpf (0-5); Urine Appearance Cloudy (CLEAR); Urine Color Yellow (Yellow); Urobilinogen Urine Norm (Negative); WBC Urine >100 /hpf (0-5)
[2020-02-24 07:14] LABS: Uric Acid 5.2 mg/dL (2.4-5.7)
[2020-02-24 07:15] LABS: Add Urine Culture? Yes
[2020-02-24 07:37] LABS: Glucose Point of Care 79 mg/dL (70-110)
[2020-02-24] MEDS: levofloxacin-dextrose 5 % 500 MG/100 ML PREMIX 100 MG IV (07:40)
[2020-02-24 07:41] LABS: Phosphorus 5.2 mg/dL (2.5-4.5)
--- NOTE | 2020-02-24 09:37 | P.ANESASSM_ITS ---
Pre-Anesthetic Assessment Pre-Anesthetic Assessment: Height/Weight: Height 1.63 m Weight 43.636 kg Temp Pulse Resp BP Pulse Ox 97.5 F L 88 18 97/61 97 02/24/20 09:15 02/24/20 09:15 02/24/20 09:15 02/24/20 09:15 02/24/20 09:15 Preop Diagnosis: Infected right upper chest Port-A-Cath Proposed Procedure: Operation Date: 02/24/20 13:15 Proposed Procedures p Portacath Removal(Right) - Reji Keller MD Familial anesthetic complications: trouble waking up after a lumpectomy (was sleepy) Was Beta Arti taken within 24 hours: N/A Last intake: Intake Last Liquid Date 02/24/20 Last Liquid Time 07:40 (grapejuice) Last Solid Date 02/23/20 Last Solid Time 22:00 Social: Social History: No alcohol and No tobacco Exam: Pre-Anes Outpt Exam: alert, oriented x 3, clear to auscultation bilaterally and regular rate & rhythm Airway: Cervical ROM: WNL MP: 4 Dentition: False Pulmonary: Comments: lung cancer CV/HEM: CV/HEM: CAD (stents 1 year ago in november (unaware if she takes plavix)) and HTN : : Chronic renal Insufficiency GI: GI: GERD Metabolic: Metabolic: DM and Hyperlipidemia Musc/skel: Musc/skel: OA/DJD Neuropsych: Comments: hx acute encephalopathy Anesthetic Plan: ASA status: 4 Anesthesia: MAC Risk of > 500 ml blood loss (7ml/kg in children): No Meds/Allergies Current Medications: Current Medications Generic Name Dose Route Start Last Admin Trade Name Freq PRN Reason Stop Dose Admin Ferrous Sulfate 325 mg 02/24/20 09:00 02/24/20 07:30 Ferrous Sulfate PO Not Given BID CINTIA Fluticasone Propio jillian 2 spray 02/24/20 09:00 02/24/20 09:16 Flonase INTRANASAL Not Given DAILY CINTIA Sodium Chloride 1,000 mls @ 100 m ls/hr 02/23/20 23:00 02/24/20 09:26 Sodium Chloride 0.9% IV Infused .Q10H CINTIA Infusion Levofloxacin/Dextr ose 500 mg in 100 mls @ 100 mls/hr 02/24/20 03:30 02/24/20 09:26 Levaquin-D5w IV Infused Q24H [facility] Infusion Protocol Insulin Aspart 0 unit 02/24/20 08:00 02/24/20 07:30 Novolog SUBCUT Not Given TIDWM [facility] Protocol Lactobacillus Acid ophilus 1 tab 02/24/20 09:00 02/24/20 07:30 Floranex PO Not Given BID CINTIA Magnesium Oxide 400 mg 02/24/20 09:00 02/24/20 07:31 Magox PO Not Given BID CINTIA Polyethylene Glyco l 17 gm 02/24/20 09:00 02/24/20 07:31 Miralax PO Not Given Q3D CINTIA PFSH Anesthesia PFSH: Medical History Antineoplastic chemotherapy induced pancytopenia CAD (coronary artery disease) Cervical cancer Chronic kidney disease Diabetes mellitus, type II Unclear if this is an active or accurate diagnosis but was listed in available records History of anesthesia complications History of osteomyelitis History of paroxysmal supraventricular tachycardia History of radiation therapy Hyperlipidemia Hypertension Iron deficiency anemia Peripheral arterial disease With history of critical limb ischemia requiring intervention although details are not known Surgical History Amputation of one or more toes All the toes on right foot History of colonoscopy (~05/2019) History of esophagogastroduodenoscopy (EGD) (~05/2019) History of lung biopsy (~12/2019) History of partial mastectomy History of rectal surgery History of vaginal surgery Details not clear presently but has had multiple vaginal procedures. Do not see clear evidence of hysterectomy and available records Port-A-Cath in place (~10/2019) Social History Housing: Snf Supplemental PFSH Information: Other than knowing patient resides in a [facility], social and family history not otherwise able to be obtained presently Data Anesthesia CBC & Chem 7: 02/24/20 05:27 02/24/20 05:27 Other Labs: Laboratory Results - last 48 hr 02/23/20 02/23/20 02/23/20 13:15 13:15 13:15 WBC 14.1 H RBC 2.20 L Hgb 6.9 L Hct 23.6 L MCV 107.3 H MCH 31.4 MCHC 29.2 L RDW 20.3 H Plt Count 152 MPV 9.2 Neut % (Auto) 92.0 Lymph % (Auto) 3.7 [place] % (Auto) 2.6 Eos % (Auto) 0.4 Baso % (Auto) 0.2 Neut # (Auto) 12.99 H Lymph # (Auto) 0.5 L [place] # (Auto) 0.4 Eos # (Auto) 0.1 Baso # (Auto) 0.0 Nucleated RBC % (auto) 0 Nucleated RBCs # 0.0 Sodium 133 L Potassium 5.8 H Chloride 102 Carbon Dioxide 22 Anion Gap 14.8 BUN 27 H Creatinine 2.1 H GFR Calculation 23.6 L Glucose 109 POC Glucose Calculated Osmolality 282 L Lactate 1.8 Uric Acid Calcium 8.1 L Phosphorus Magnesium Total Bilirubin 0.2 AST 7 ALT < 5 Alkaline Phosphatase 154 H C-Reactive Protein 162.6 H Total Protein 7.1 Albumin 2.4 L Globulin 4.7 H Urine Color Urine Appearance Urine pH Ur Specific [place] Urine Protein Urine Glucose (UA) Urine Ketones Urine Blood Urine Nitrate Urine Bilirubin Urine Urobilinogen Ur Leukocyte Esterase Urine RBC Urine WBC Ur Squamous Epith Cells Amorphous Sediment Urine Bacteria Blood Type Rho(D) Type Antibody Screen Crossmatch 02/23/20 02/24/20 02/24/20 16:48 05:27 05:27 WBC 11.6 H RBC 2.71 L Hgb 8.1 L Hct 27.6 L MCV 101.8 H D MCH 29.9 MCHC 29.3 L RDW 23.2 H Plt Count 127 L MPV 9.2 Neut % (Auto) 89.1 Lymph % (Auto) 5.8 [place] % (Auto) 3.5 Eos % (Auto) 0.5 Baso % (Auto) 0.3 Neut # (Auto) 10.37 H Lymph # (Auto) 0.7 L [place] # (Auto) 0.4 Eos # (Auto) 0.1 Baso # (Auto) 0.0 Nucleated RBC % (auto) 0 Nucleated RBCs # 0.0 Sodium 135 L Potassium 5.2 H Chloride 106 Carbon Dioxide 21 L Anion Gap 13.2 BUN 29 H Creatinine 2.3 H GFR Calculation 21.2 L Glucose 80 POC Glucose Calculated Osmolality 285 Lactate Uric Acid Calcium 7.7 L Phosphorus Magnesium Total Bilirubin AST ALT Alkaline Phosphatase C-Reactive Protein Total Protein Albumin Globulin Urine Color Urine Appearance Urine pH Ur Specific [place] Urine Protein Urine Glucose (UA) Urine Ketones Urine Blood Urine Nitrate Urine Bilirubin Urine Urobilinogen Ur Leukocyte Esterase Urine RBC Urine WBC Ur Squamous Epith Cells Amorphous Sediment Urine Bacteria Blood Type A Positive Rho(D) Type Positive Antibody Screen Negative Crossmatch See Detail 02/24/20 02/24/20 02/24/20 05:27 05:27 06:30 WBC RBC Hgb Hct MCV MCH MCHC RDW Plt Count MPV Neut % (Auto) Lymph % (Auto) [place] % (Auto) Eos % (Auto) Baso % (Auto) Neut # (Auto) Lymph # (Auto) [place] # (Auto) Eos # (Auto) Baso # (Auto) Nucleated RBC % (auto) Nucleated RBCs # Sodium Potassium Chloride Carbon Dioxide Anion Gap BUN Creatinine GFR Calculation Glucose POC Glucose Calculated Osmolality Lactate Uric Acid 5.2 Calcium Phosphorus 5.2 H Magnesium 3.0 H Total Bilirubin AST ALT Alkaline Phosphatase C-Reactive Protein Total Protein Albumin Globulin Urine Color Yellow Urine Appearance Cloudy Urine pH 7.0 Ur Specific [place] 1.005 Urine Protein Trace Urine Glucose (UA) Norm Urine Ketones Negative Urine Blood 3+ H Urine Nitrate Negative Urine Bilirubin Neg Urine Urobilinogen Norm Ur Leukocyte Esterase 2+ H Urine RBC 10-15 H Urine WBC >100 H Ur Squamous Epith Cells 0-4 H Amorphous Sediment Not Reportable Urine Bacteria 1+ H Blood Type Rho(D) Type Antibody Screen Crossmatch 02/24/20 02/24/20 06:34 07:29 WBC RBC Hgb Hct MCV MCH MCHC RDW Plt Count MPV Neut % (Auto) Lymph % (Auto) [place] % (Auto) Eos % (Auto) Baso % (Auto) Neut # (Auto) Lymph # (Auto) [place] # (Auto) Eos # (Auto) Baso # (Auto) Nucleated RBC % (auto) Nucleated RBCs # Sodium Potassium Chloride Carbon Dioxide Anion Gap BUN Creatinine GFR Calculation Glucose POC Glucose 75 79 Calculated Osmolality Lactate Uric Acid Calcium Phosphorus Magnesium Total Bilirubin AST ALT Alkaline Phosphatase C-Reactive Protein Total Protein Albumin Globulin Urine Color Urine Appearance Urine pH Ur Specific [place] Urine Protein Urine Glucose (UA) Urine Ketones Urine Blood Urine Nitrate Urine Bilirubin Urine Urobilinogen Ur Leukocyte Esterase Urine RBC Urine WBC Ur Squamous Epith Cells Amorphous Sediment Urine Bacteria Blood Type Rho(D) Type Antibody Screen Crossmatch Micro: Microbiology 02/23/20 13:10 Blood Culture - Preliminary Blood SPECIMEN COLLECTED 02/23/20 13:15 Blood Culture - Preliminary Blood SPECIMEN COLLECTED Cardiac Studies: No Data to Display
[2020-02-24] MEDS: sodium chloride 0.9% 1,000 ML 30 ML IV (09:47)
[2020-02-24] MEDS: lidocaine 2% INJ 20 mL INJECTION (12:29)
--- NOTE | 2020-02-24 12:33 | P.OP_ITS ---
Operative Report Date of procedure: February 24, 2020 Pre-op Diagnosis: Infected right upper chest Port-A-Cath Post-op diagnosis: same Post-op Findings: Skin breakdown of right upper chest port Procedure Done: Explantation of infected right upper chest Port-A-Cath Specimens removed/disposition: Port-A-Cath for cultures and sensitivities Surgeon: Reji Keller [employer]: engineering laboratory technician Joanne Oden and medical student Lili Circulating nurse Sonia Anesthesia: MAC (Ricki Gupta) Estimated blood loss (mL): 5 Condition: stable Disposition: floor Brief History: Plan of care; After thorough history physical examination and reviewing the chart, I counseled the patient for Port-A-Cath explantation, indications, risks including pneumothorax and injury of major vascular structures, benefits,indications and alternatives were all discussed with the patient, patient understands and is interested to proceed. Rationale was carefully and clearly discussed with the patient and the family.Appropriate informed consent have been reviewed and signed. Procedure: After identifying the patient in the holding area, informed consent per chart ,patient was then taken to the operative suite, was placed in supine position, IV propofol was infused by the anesthesia provider and both arms were tucked, prep and drape of the right upper chest region was done under the usual sterile technique including the right side of the neck. Time-out was done verifying the patient's name/date of /planned procedure and destination after the procedure, all were in agreement. I started by injection of lidocaine 2% at the site of the planned incision, noticed that the catheter of the port is already exposed due to skin breakdown. Started by an transverse incision including the previous scar of the Port-A-Cath placement located at the right upper chest, the port was then explanted easily, the surrounding pseudocapsule looked unhealthy, at this point the catheter was removed at the same time direct pressure was applied at the site of the right internal jugular vein stick to prevent bleeding. The entire port and the catheter was sent for microbiology for cultures and sensitivities.Further removal and excision of unhealthy tissues was obtained. Thorough irrigation of the Port-A-Cath cavity was done followed by hemostasis, pressure was sustained for at least 5 minutes to prevent bleeding from the stick site. Closure using 3-0 nylon to approximate skin edges followed by packing with Nu Gauze to dry followed by dry dressing Patient tolerated the procedure well, count of instruments, needles and sponges were completed at the end of the procedure.And then patient was taken to the recovery area in stable condition. I Was present for the whole entire procedure
--- NOTE | 2020-02-24 12:50 | PM.PACU ---
PACU note Post-Anesthesia Exam: awake and vital signs stable Disposition: back to floor
--- NOTE | 2020-02-24 12:57 | SUR.PHASEI ---
PT AWAKE ALERT TALKATIVE RT CHEST DRESSING D/I VSS SATS ON RA 100%
--- NOTE | 2020-02-24 13:21 | PC.NURSE ---
PT arrived to the floor around 1300. This nurse, another nurse, an aid, and a nurse from surgery all assisted in transferring the pt into the bed on the floor. PT tolerated the transfer well. An assessment was completed and vitals were taken. PT was cleaned and changed and warm blankets were applied. Continuing to monitor.
[2020-02-24 13:28] LABS: Glucose Point of Care 95 mg/dL (70-110)
[2020-02-24] MEDS: fixodent 39 gm Tube 1 APPLIC DENTAL (14:27)
--- NOTE | 2020-02-24 16:05 | P.PN_ITS ---
Subjective Subjective: Interval history: Jerica reports she is doing okay after her port removal. Denies significant pain. Medications: Reviewed: Yes Vitals/I&O/Wt Last Vital Signs Temp 97.0 F L 02/24/20 15:30 Pulse 74 02/24/20 15:30 Resp 16 02/24/20 15:30 BP 104/68 02/24/20 15:30 Pulse Ox 95 02/24/20 15:30 02/24/20 02/24/20 02/24/20 06:59 14:59 22:59 Intake Total 350 / 350 800 / 800 Output Total 0 / 0 Balance 350 / 350 800 / 800 Weight last 48 hrs Weight 43.636 kg Physical Exam Narrative: EXAM NARRATIVE: General exam is a thin appearing white female in no apparent distress Cardiovascular regular rate and rhythm without murmur, bandage right chest where port was removed. Lungs clear but diminished breath sounds bilaterally Abdomen is soft positive bowel sounds Extremities no cyanosis clubbing or edema Data : 02/24/20 05:27 02/24/20 05:27 Micro: Microbiology 02/23/20 13:15 Blood Culture - Preliminary Blood NEGATIVE TO DATE 02/23/20 13:10 Blood Culture - Preliminary Blood NEGATIVE TO DATE A&P Assessment and plan (1) Acute encephalopathy: Multifactorial. Received Ativan and Geodon in the emergency department. Currently appears at baseline. Conversive, and pleasant. Status: Acute (2) Infection due to Port-A-Cath: Being of Port-A-Cath, with concern of infection. Port was removed today. Continue current IV antibiotics. Currently on IV vancomycin and Levaquin. Status: Acute Qualifiers: Encounter type: initial encounter Qualified Code(s): T80.219A - Unspecified infection due to central venous catheter, initial encounter (3) Acute kidney injury: Probably secondary to dehydration, or in the face of Bactrim. Continue to follow closely. Potassium appears improved. Continue hydration Status: Acute (4) Macrocytic anemia: Hemoglobin has improved to 8.1. After transfusion of 1 unit packed red blood cells. Check stool Hemoccult Status: Acute (5) Ulcer of left ankle: Status: Chronic Qualifiers: Non-pressure ulcer stage: unspecified non-pressure ulcer stage Qualifie d Code(s): L97.329 - Non-pressure chronic ulcer of left ankle with unspecified severity (6) Cervical cancer: Last chemotherapy patient believes was around the first of this month. Oncology clinic phone number is [phone] Status: Chronic Qualifiers: Malignant neoplasm of cervix location: unspecified location Qualified Code(s): C53.9 - Malignant neoplasm of cervix uteri, unspecified (7) Moderate protein-calorie malnutrition: Status: Chronic (8) Hypertension: Chronically on isosorbide Status: Chronic Qualifiers: Hypertension type: unspecified Qualified Code(s): I10 - Essential (primary) hypertension (9) Hyperlipidemia: On statin Status: Chronic Qualifiers: Hyperlipidemia type: unspecified Qualified Code(s): E78.5 - Hyperlipidemia, unspecified (10) Diabetes mellitus, type II: No evidence of significant glucose elevations currently. Status: Chronic Qualifiers: Chronic kidney disease stage: unspecified stage Diabetes mellitus complication detail: with chronic kidney disease Diabetes mellitus complication status: with kidney complications Diabetes mellitus exterminator helper termite insulin use: without jail use Qualified Code(s): E11.22 - Type 2 diabetes mellitus with diabetic chronic kidney disease (11) History of MRSA infection: Status: Chronic Additional A&P Information UTI. Continue Levaquin. Await culture. Allow natural SCDs for DVT prophylaxis considering anemia Attestations Medical Necessity Statement*: Needs continued hospitalization for IV antibiotics secondary to port infection and UTI associated with encephalopathy. Coding Level of Care Code Acute Credit Representative for [facility] Diagnoses Acute encephalopathy G93.40 Infection due to Port-A-Cath T80.219A Encounter type: initial encounter Acute kidney injury N17.9 Macrocytic anemia D53.9 Ulcer of left ankle L97.329 Non-pressure ulcer stage: unspecified non-pressure ulcer stage Cervical cancer C53.9 Malignant neoplasm of cervix location: unspecified location Moderate protein-calorie malnutrition E44.0 Hypertension I10 Hypertension type: unspecified Hyperlipidemia E78.5 Hyperlipidemia type: unspecified Diabetes mellitus, type II E11.22 Chronic kidney disease stage: unspecified stage Diabetes mellitus complication detail: with chronic kidney disease Diabetes mellitus complication status: with kidney complications Diabetes mellitus exterminator helper termite insulin use: without exterminator helper termite use History of MRSA infection Z86.14
--- NOTE | 2020-02-24 16:09 | PC.OT ---
OT note: Pt had surgery today for port a cath removal. Pt requested to hold OT eval until tomorrow.
[2020-02-24 16:33] LABS: Glucose Point of Care 144 mg/dL (70-110)
[2020-02-24] MEDS: ferrous sulfate EC 325 mg Tablet PO (18:24)
[2020-02-24] MEDS: lactobacillus 1 Tablet 1 TAB PO (18:24)
[2020-02-24 21:21] LABS: Glucose Point of Care 111 mg/dL (70-110)
[2020-02-24] MEDS: atorvastatin 40 mg Tablet 80 MG PO (23:25)
[2020-02-25] VITALS (9 sets, daily range): BP systolic 92–118; BP diastolic 52–75; PULSE 75–108; RESP 14–18; TEMP 36.4–36.9; O2SAT 94–99
[2020-02-25] MEDS: TRAMadol 50 mg Tablet PO ×2 (02:09→15:55)
[2020-02-25 03:20] LABS: Basophils % 0.2 %; Eosinophils % 0.4 %; Hematocrit 32.4 % (37.0-47.0); Lymphocytes # 0.5 10^3/uL (0.8-4.8); Lymphocytes % 6.4 %; Mean Corpuscular HGB Conc 30.9 g/dL (30.0-36.0); Mean Corpuscular Hemoglobin 29.6 pg (28.0-34.0); Mean Corpuscular Volume 95.9 fL (81-99); Mean Platelet Volume 9.1 fL (7.4-10.4); Monocytes # 0.3 10^3/uL (0.2-0.9); Neutrophils # 7.34 10^3/uL (1.8-7.7); Neutrophils % 89.4 %; Nucleated Red Blood Cells % 0 %; Platelet Count 93 10^3/cmm (130-400); Red Blood Count 3.38 10^6/uL (4.1-5.3); Red Cell Distribution Width 24.1 % (12.1-15.1); White Blood Count 8.2 10^3/uL (4.0-10.0)
[2020-02-25] MEDS: levofloxacin-dextrose 5 % 500 MG/100 ML PREMIX 100 MG IV (03:36)
[2020-02-25 03:43] LABS: Alanine Aminotransferase < 5 U/L (0-33); Albumin Level 1.9 g/dL (3.5-5.2); Alkaline Phosphatase 147 IU/L (35-105); Anion Gap 14.3 (5-19); Aspartate Amino Transferase 8 U/L (0-32); Blood Urea Nitrogen 21 mg/dL (8-23); Calcium 7.1 mg/dL (8.5-10.5); Carbon Dioxide 17 mmol/L (22-29); Chloride 109 mmol/L (98-107); Globulin 3.4 g/dL (1.3-4.6); Glomerular Filtration Rate 22.3 mL/min (90-130); Glucose 193 mg/dL (65-115); Osmolality Calculated 290 mOsm/kg (285-295); Potassium 4.3 mmol/L (3.5-5.1); Sodium 136 mmol/L (136-145); Total Bilirubin 0.2 mg/dL (0.15-1.2); Total Protein 5.3 g/dL (6.6-8.7)
--- NOTE | 2020-02-25 07:00 | US_ITS ---
WS: [id number] RENAL ULTRASOUND URINARY BLADDER ULTRASOUND HISTORY: RENAL FAILURE COMPARISON: None available. TECHNIQUE: 2-D and color Doppler imaging of the kidney submitted. Right kidney: 10.9 cm x 5.3 cm x 5.5 cm. Normal echogenicity with no hydronephrosis or mass. Left kidney: 9.5 cm x 5.0 cm x 5.2 cm. Normal echogenicity with no hydronephrosis or mass. Aorta: Mild atherosclerosis with no aneurysm. Urinary Bladder: Moderately well distended urinary bladder. Fluid/fluid layer in the urinary bladder. There is layering debris which is homogeneous in the posterior urinary bladder. US/US renal BI with bladder IMPRESSION: 1. No renal obstruction or stone or mass identified. 2. Moderate amount of layering debris in the urinary bladder. May be from prio r hemorrhage or infection. No increased vascularity to suggest this is a mass.
[2020-02-25 07:09] LABS: Glucose Point of Care 94 mg/dL (70-110)
[2020-02-25] MEDS: fluticasone nasal spray 16gm Btl 2 SPRAY INTRANASAL (09:03)
[2020-02-25] MEDS: lactobacillus 1 Tablet 1 TAB PO ×2 (09:03→17:28)
[2020-02-25] MEDS: ferrous sulfate EC 325 mg Tablet PO ×2 (09:03→17:28)
[2020-02-25] MEDS: sodium chloride 0.9% 1,000 ML 100 ML IV ×2 (09:12→23:33)
[2020-02-25 10:38] LABS: Glucose Point of Care 155 mg/dL (70-110)
--- NOTE | 2020-02-25 11:33 | ANE.PACU2 ---
Inpatient post-anesthesia follow up: Airway intact: Yes Vital signs: Temperature 98.3 F Pulse Rate [Monito r] 91 Pulse Rate 102 Respiratory Rate 16 Blood Pressure [Ri ght Arm] 92/58 Blood Pressure 112/60 Pulse Oximetry 96 Oxygen Delivery Me thod [ Room Air Current Rate & Del otf] Oxygen Delivery Me thod Room Air Oxygen Flow Rate 8 Fraction of Inspir ed Oxygen Hydration adequate: Yes Nausea and vomiting: No Pain level: 1 Mental status: Baseline
[2020-02-25] MEDS: ondansetron 4 MG Tablet PO (13:05)
--- NOTE | 2020-02-25 13:12 | PM.PN ---
Subjective Subjective: Interval history: Jerica reports she is doing okay but having some trouble feeling where her legs are. She reports it is bilateral. She reports she urinates and does not know it. Symptoms have been going on for at least 4 weeks but she believes they may be worse. She can however urinate on command. Medications: Reviewed: Yes Vitals/I&O/Wt Last Vital Signs Temp 98.3 F 02/25/20 10:37 Pulse 102 H 02/25/20 10:37 Resp 16 02/25/20 10:37 BP 112/60 02/25/20 10:37 Pulse Ox 96 02/25/20 10:37 02/24/20 02/25/20 02/25/20 22:59 06:59 14:59 Intake Total 0 / 800 1000 / 1800 120 / 120 Output Total 0 / 0 Balance 0 / 800 1000 / 1800 120 / 120 Physical Exam Narrative: EXAM NARRATIVE: General exam is a thin appearing white female in no apparent distress Cardiovascular regular rate and rhythm without murmur, bandage right chest where port was removed. Lungs clear but diminished breath sounds bilaterally Abdomen is soft positive bowel sounds Extremities no cyanosis clubbing or edema. She does have sensation to her lower extremities to touch. Data : 02/25/20 02:54 02/25/20 02:54 Micro: Microbiology 02/25/20 09:19 Occult Blood (FIT) - Final Stool Routine Collection 02/24/20 06:30 Urine Culture - Preliminary Urine,Clean Catch 02/23/20 13:15 Blood Culture - Preliminary Blood NEGATIVE TO DATE 02/23/20 13:10 Blood Culture - Preliminary Blood NEGATIVE TO DATE A&P Assessment and plan (1) Acute encephalopathy: Multifactorial. Received Ativan and Geodon in the emergency department. Currently appears at baseline. Conversive, and pleasant. Status: Acute (2) Infection due to Port-A-Cath: Being of Port-A-Cath, with concern of infection. Port was removed February 23 continue current IV antibiotics. Currently on IV vancomycin and Levaquin. Status: Acute Qualifiers: Encounter type: initial encounter Qualified Code(s): T80.219A - Unspecified infection due to central venous catheter, initial encounter (3) Acute kidney injury: Probably secondary to dehydration, or in the face of Bactrim. Continue to follow closely. Potassium improved. Renal function about the same. Continue hydration. Reduce fluids slightly. Status: Acute (4) Macrocytic anemia: Hemoglobin has improved to 8.1. After transfusion of 1 unit packed red blood cells. This has improved further. Stool Hemoccult is negative Status: Acute (5) Ulcer of left ankle: Status: Chronic Qualifiers: Non-pressure ulcer stage: unspecified non-pressure ulcer stage Qualified Code(s): L97.329 - Non-pressure chronic ulcer of left ankle with unspecified severity (6) Cervical cancer: Last chemotherapy patient believes was around the first of this month. Oncology clinic phone number is [phone] Status: Chronic Qualifiers: Malignant neoplasm of cervix location: unspecified location Qualified Code(s): C53.9 - Malignant neoplasm of cervix uteri, unspecified (7) Moderate protein-calorie malnutrition: Status: Chronic (8) Hypertension: Chronically on isosorbide Status: Chronic Qualifiers: Hypertension type: unspecified Qualified Code(s): I10 - Essential (primary) hypertension (9) Hyperlipidemia: On statin Status: Chronic Qualifiers: Hyperlipidemia type: unspecified Qualified Code(s): E78.5 - Hyperlipidemia, unspecified (10) Diabetes mellitus, type II: No evidence of significant glucose elevations currently. Status: Chronic Qualifiers: Diabetes mellitus materials tech insulin use: without skilled nursing use Diabetes mellitus complication status: with kidney complications Diabetes mellitus complication detail: with chronic kidney disease Chronic kidney disease stage: unspecified stage Qualified Code(s): E11.22 - Type 2 diabetes mellitus with diabetic chronic kidney disease (11) History of MRSA infection: Status: Chronic Additional A&P Information UTI. Continue Levaquin. Await culture. Renal ultrasound without obstruction. Some retention on ultrasound. Initiate Flomax. Thrombocytopenia. Continue to monitor. Repeat level tomorrow Complaints of difficulty with urinary continence, decreased sensation to legs. With history of malignancy will check thoracic and lumbar MRI. She does have some sensation to her legs. She still has motor function. Although incontinent frequently she can urinate when instructed. Allow natural SCDs for DVT prophylaxis considering anemia Attestations Medical Necessity Statement*: Needs continued hospital stay for IV antibiotics secondary to concern of infected port, UTI Coding Level of Care Code Acute E Commerce Developer for [facility] Diagnoses Acute encephalopathy G93.40 Infection due to Port-A-Cath T80.219A Encounter type: initial encounter Acute kidney injury N17.9 Macrocytic anemia D53.9 Ulcer of left ankle L97.329 Non-pressure ulcer stage: unspecified non-pressure ulcer stage Cervical cancer C53.9 Malignant neoplasm of cervix location: unspecified location Moderate protein-calorie malnutrition E44.0 Hypertension I10 Hypertension type: unspecified Hyperlipidemia E78.5 Hyperlipidemia type: unspecified Diabetes mellitus, type II E11.22 Diabetes mellitus skilled nursing insulin use: without skilled nursing use Diabetes mellitus complication status: with kidney complications Diabetes mellitus complication detail: with chronic kidney disease Chronic kidney disease stage: unspecified stage History of MRSA infection Z86.14
[2020-02-25] MEDS: tamsulosin 0.4 mg Capsule PO (14:40)
[2020-02-25 16:46] LABS: Glucose Point of Care 97 mg/dL (70-110)
[2020-02-25] MEDS: vancomycin 750 MG in sodium chloride 0.9% 250 ML 250 MG IV (17:28)
[2020-02-25] MEDS: morphine 4 mg/mL SDV 1 mL 2 MG IVP (18:38)
[2020-02-25 20:51] LABS: Glucose Point of Care 174 mg/dL (70-110)
[2020-02-25] MEDS: atorvastatin 40 mg Tablet 80 MG PO (22:14)
[2020-02-26] VITALS (25 sets, daily range): BP systolic 73–148; BP diastolic 37–72; PULSE 86–102; RESP 16–24; TEMP 36.4–37.4; O2SAT 95–100
[2020-02-26 04:16] LABS: Basophils % 0.3 %; Eosinophils # 0.1 10^3/uL (0.0-0.8); Hemoglobin 6.6 g/dL (11.5-15.3); Lymphocytes # 0.5 10^3/uL (0.8-4.8); Lymphocytes % 5.1 %; Mean Corpuscular Hemoglobin 30.1 pg (28.0-34.0); Mean Corpuscular Volume 100.5 fL (81-99); Mean Platelet Volume 9.2 fL (7.4-10.4); Monocytes # 0.4 10^3/uL (0.2-0.9); Neutrophils # 7.88 10^3/uL (1.8-7.7); Neutrophils % 88.7 %; Nucleated Red Blood Cells % 0 %; Platelet Count 115 10^3/cmm (130-400); Red Blood Count 2.19 10^6/uL (4.1-5.3); Red Cell Distribution Width 23.7 % (12.1-15.1); White Blood Count 8.9 10^3/uL (4.0-10.0)
[2020-02-26] MEDS: levofloxacin-dextrose 5 % 500 MG/100 ML PREMIX 100 MG IV (04:17)
[2020-02-26 04:50] LABS: Blood Urea Nitrogen 16 mg/dL (8-23); Calcium 7.6 mg/dL (8.5-10.5); Carbon Dioxide 16 mmol/L (22-29); Chloride 110 mmol/L (98-107); Glomerular Filtration Rate 32.2 mL/min (90-130); Glucose 83 mg/dL (65-115); Osmolality Calculated 276 mOsm/kg (285-295); Sodium 133 mmol/L (136-145)
[2020-02-26] MEDS: morphine 4 mg/mL SDV 1 mL 2 MG IVP ×5 (06:04→23:49)
[2020-02-26 06:14] LABS: Glucose Point of Care 107 mg/dL (70-110)
[2020-02-26] MEDS: TRAMadol 50 mg Tablet PO ×2 (07:31→20:40)
[2020-02-26] MEDS: tamsulosin 0.4 mg Capsule PO (08:33)
[2020-02-26] MEDS: lactobacillus 1 Tablet 1 TAB PO ×2 (08:33→18:19)
[2020-02-26] MEDS: ferrous sulfate EC 325 mg Tablet PO ×2 (08:33→18:19)
[2020-02-26] MEDS: fluticasone nasal spray 16gm Btl 2 SPRAY INTRANASAL (08:33)
[2020-02-26 12:37] LABS: Glucose Point of Care 201 mg/dL (70-110)
[2020-02-26 13:18] LABS: Hematocrit 22.5 % (37.0-47.0); Hemoglobin 6.8 g/dL (11.5-15.3)
--- NOTE | 2020-02-26 13:27 | PC.NURSE ---
Called [facility] to obtain make and serial numbers of stents. Message was sent to nurse. Currently waiting on a call back from Dr. Garsia's nurse.
--- NOTE | 2020-02-26 13:44 | PC.NURSE ---
Model and serial numbers obtained from Shanice at [facility]. durability technician notified. Model numbers copied and placed in paper chart.
--- NOTE | 2020-02-26 14:33 | CTR_ITS ---
PROCEDURE INFORMATION: Exam: CT Thoracic Spine Without Contrast Exam date and time: 02/26/2020 4:20 PM Age: 65 years old Clinical indication: Weakness and other: Incontinence; Prior surgery; Additional info: Lower extremity weakness and incontinence TECHNIQUE: Imaging protocol: Computed tomography images of the thoracic spine without contrast. Radiation optimization: All CT scans at this facility use at least one of these dose optimization techniques: automated exposure control; mA and/or kV adjustment per patient size (includes targeted exams where dose is matched to clinical indication); or iterative reconstruction. COMPARISON: No relevant prior studies available. RADIATION DOSE METRICS: Total DLP (mGy-cm): 660.16 FINDINGS: Vertebrae: No acute fracture. Degenerative disease with spondylosis deformans. Osteopenia/osteoporosis. Slight increase in the thoracic kyphosis curvature. Discs/Spinal canal/Neural foramina: No significant disc protrusion. No severe spinal canal stenosis. No significant neural foraminal narrowing. Moderate degenerative disc disease with disc space height loss and a small central posterior disc bulge osteophyte complex T7/T8. No central canal stenosis. Less significant degenerative disc disease midthoracic spine. Soft tissues: Unremarkable. Other findings: Please review separate examination report CT chest 02/23/2020. CT/CT thoracic spin wo con* [id number] IMPRESSION: 1. No visible acute osseous abnormality. 2. No visible significant spinal stenosis. 3. Degenerative disease with spondylosis deformans. 4. Osteopenia/osteoporosis. 5. Moderate degenerative disc disease with disc space height loss T7/T8. Radiation Dose CTDIVOL = (mGy): DLP = 660.16 (mGy-cm)
--- NOTE | 2020-02-26 14:36 | CTR_ITS ---
PROCEDURE INFORMATION: Exam: CT Lumbar Spine Without Contrast Exam date and time: 02/26/2020 4:20 PM Age: 65 years old Clinical indication: Weakness and other: Incontinence; Prior surgery; Additional info: Lower extremity weakness and incontinence TECHNIQUE: Imaging protocol: Computed tomography images of the lumbar spine without contrast. Radiation optimization: All CT scans at this facility use at least one of these dose optimization techniques: automated exposure control; mA and/or kV adjustment per patient size (includes targeted exams where dose is matched to clinical indication); or iterative reconstruction. COMPARISON: No relevant prior studies available. RADIATION DOSE METRICS: Total DLP (mGy-cm): 1121.63 FINDINGS: Vertebrae: No acute fracture. Normal alignment. Mild spondylosis deformans in degenerative disease. No spondylolysis or spondylolisthesis. No visible significant facet arthrosis. Discs/Spinal canal/Neural foramina: No significant disc protrusion. No severe spinal canal stenosis. No significant neural foraminal narrowing. Minimal posterior disc bulge osteophyte complex L5/S1 with mild disc space height loss. No central canal stenosis. Soft tissues: Unremarkable. CT/CT lumbar spine wo con* [id number] IMPRESSION: No acute findings. Radiation Dose CTDIVOL = (mGy): DLP = 1121.63 (mGy-cm)
[2020-02-26] MEDS: sodium chloride 0.9% 1,000 ML 75 ML IV (14:41)
--- NOTE | 2020-02-26 15:26 | DCPLANNER ---
Pg 2 of IM updated and reviewed with pt. She is familiar with it and does not have questions. Copy provided.
--- NOTE | 2020-02-26 15:40 | PC.OT ---
OT note: Attempted x2, however, pt's hgb low and pt very fatigued. Will hold at this time.
[2020-02-26] MEDS: sodium chloride 0.9% (100 ml) 100 ML 50 ML (16:08)
--- NOTE | 2020-02-26 16:19 | PM.PN ---
Subjective Subjective: Interval history: Jerica was not able to get her MRI. We have diverted to a CT scan. This is because of stenting in her legs. She denies any other complaints today. Hemoglobin was noted to be markedly lower. She has been heme-negative and not having significant blood loss. She reports that she needs transfusions intermittently secondary to her underlying malignancy and this is not unusual. Medications: Reviewed: Yes Vitals/I&O/Wt Last Vital Signs Temp 98.8 F 02/26/20 16:07 Pulse 90 02/26/20 16:07 Resp 16 02/26/20 16:07 BP 99/60 02/26/20 16:07 Pulse Ox 96 02/26/20 16:07 02/26/20 02/26/20 02/26/20 06:59 14:59 22:59 Intake Total 480 / 2220 1280 / 1280 0 / 1280 Balance 480 / 2220 1280 / 1280 0 / 1280 Physical Exam Narrative: EXAM NARRATIVE: General exam is a thin appearing white female in no apparent distress Cardiovascular regular rate and rhythm without murmur, bandage right chest where port was removed. Lungs clear but diminished breath sounds bilaterally Abdomen is soft positive bowel sounds Extremities no cyanosis clubbing or edema. She seems to be moving her extremities a little bit better today. Data : 02/26/20 13:08 02/26/20 03:15 Micro: Microbiology 02/24/20 12:22 Catheter Tip Culture - Preliminary Other Source Staphylococcus aureus 02/24/20 06:30 Urine Culture - Final Urine,Clean Catch A&P Assessment and plan (1) Acute encephalopathy: Multifactorial. Received Ativan and Geodon in the emergency department. Currently appears at baseline. Conversive, and pleasant. Status: Acute (2) Infection due to Port-A-Cath: Being of Port-A-Cath, with concern of infection. Port was removed February 23 continue current IV antibiotics. Currently on IV vancomycin and Levaquin. Catheter tip is growing staph aureus. It may be pertinent to give her 2 weeks of IV antibiotics and she will likely need a PICC line to facilitate this Status: Acute Qualifiers: Encounter type: initial encounter Qualified Code(s): T80.219A - Unspecified infection due to central venous catheter, initial encounter (3) Acute kidney injury: Probably secondary to dehydration, or in the face of Bactrim. Renal function has improved. Potassium now normal Continue hydration. Reduce fluids slightly. Status: Acute (4) Macrocytic anemia: She had received 1 unit of packed red blood cells but hemoglobin has decreased significantly to 6.8. Will transfuse 2 units, repeat hemoglobin tomorrow Stool Hemoccult was negative Status: Acute (5) Ulcer of left ankle: Status: Chronic Qualifiers: Non-pressure ulcer stage: unspecified non-pressure ulcer stage Qualified Code(s): L97.329 - Non-pressure chronic ulcer of left ankle with unspecified severity (6) Cervical cancer: Last chemotherapy patient believes was around the first of this month. Oncology clinic phone number is [phone] Status: Chronic Qualifiers: Malignant neoplasm of cervix location: unspecified location Qualified Code(s): C53.9 - Malignant neoplasm of cervix uteri, unspecified (7) Moderate protein-calorie malnutrition: Status: Chronic (8) Hypertension: Chronically on isosorbide Status: Chronic Qualifiers: Hypertension type: unspecified Qualified Code(s): I10 - Essential (primary) hypertension (9) Hyperlipidemia: On statin Status: Chronic Qualifiers: Hyperlipidemia type: unspecified Qualified Code(s): E78.5 - Hyperlipidemia, unspecified (10) Diabetes mellitus, type II: No evidence of significant glucose elevations currently. Status: Chronic Qualifiers: Diabetes mellitus intermediate project manager insulin use: without skilled nursing use Diabetes mellitus complication status: with kidney complications Diabetes mellitus complication detail: with chronic kidney disease Chronic kidney disease stage: unspecified stage Qualified Code(s): E11.22 - Type 2 diabetes mellitus with diabetic chronic kidney disease (11) History of MRSA infection: Status: Chronic Additional A&P Information UTI. Continue Levaquin. Await culture. Renal ultrasound without obstruction. Some retention on ultrasound. Initiate Flomax. Urine culture ultimately did not have a significant colony count. Consider discontinuing Levaquin on discharge. Thrombocytopenia. Platelet count has increased slightly Complaints of difficulty with urinary continence, decreased sensation to legs. With history of malignancy was planning to do an MRI on thoracic and lumbar area. Unfortunately she cannot have this secondary to previous stenting. Will check CT. Allow natural SCDs for DVT prophylaxis considering anemia Attestations Medical Necessity Statement*: Needs continued hospital stay for IV antibiotics related to infected port Coding Level of Care Code Acute Dairy Processing Equipment Operator for [facility] Diagnoses Acute encephalopathy G93.40 Infection due to Port-A-Cath T80.219A Encounter type: initial encounter Acute kidney injury N17.9 Macrocytic anemia D53.9 Ulcer of left ankle L97.329 Non-pressure ulcer stage: unspecified non-pressure ulcer stage Cervical cancer C53.9 Malignant neoplasm of cervix location: unspecified location Moderate protein-calorie malnutrition E44.0 Hypertension I10 Hypertension type: unspecified Hyperlipidemia E78.5 Hyperlipidemia type: unspecified Diabetes mellitus, type II E11.22 Diabetes mellitus skilled nursing insulin use: without skilled nursing use Diabetes mellitus complication status: with kidney complications Diabetes mellitus complication detail: with chronic kidney disease Chronic kidney disease stage: unspecified stage History of MRSA infection Z86.14
[2020-02-26 16:54] LABS: Glucose Point of Care 62 mg/dL (70-110)
--- NOTE | 2020-02-26 17:16 | PM.PN ---
Subjective Subjective: Interval history: Feels better,requirng blood transfuaion Vitals/I&O/Wt Last Vital Signs Temp 98.2 F 02/26/20 16:18 Pulse 93 02/26/20 16:18 Resp 16 02/26/20 16:18 BP 100/61 02/26/20 16:18 Pulse Ox 98 02/26/20 16:18 02/26/20 02/26/20 02/26/20 06:59 14:59 22:59 Intake Total 480 / 2220 1280 / 1280 0 / 1280 Balance 480 / 2220 1280 / 1280 0 / 1280 Physical Exam Narrative: EXAM NARRATIVE: Patient is conscious alert oriented X3 BMI 16.5 Head and neck examination PERRLA no masses no cervical lymphadenopathy no jaundice Right upper chest wound stable with moderate erythema,packing in place Data : 02/26/20 13:08 02/26/20 03:15 Micro: Microbiology 02/24/20 12:22 Catheter Tip Culture - Preliminary Other Source Staphylococcus aureus 02/24/20 06:30 Urine Culture - Final Urine,Clean Catch A&P Assessment and plan (1) Infection due to Port-A-Cath: Plan of care; 1-nutrition optimization 2-wound care in the form of Daily packing with wet to dry 3-management of medical comorbidities per hospitalist service 4-physical therapy consultation when needed 5-assurance and education All questions have been answered and all concerns have been addressed to patient's satisfaction. Thank you for consulting general surgery to participate taking care of Ms. Whitley Status: Deleted Attestations Medical Necessity Statement*: Hospital stay extending past 2 midnights for blood transfusion, local wound care and nutrition optimization Time Spent in Patient Care: (>than 50% of time spent in counselling and/or direct pt care on unit). Coding Level of Care Code Acute Director Of Plant Operations for [facility] Diagnoses Infection due to Port-A-Cath T80.219A
[2020-02-26 17:39] LABS: Glucose Point of Care 72 mg/dL (70-110)
[2020-02-26] MEDS: atorvastatin 40 mg Tablet 80 MG PO (20:35)
[2020-02-26] MEDS: trazodone 50 mg Tablet PO (20:35)
[2020-02-26 21:02] LABS: Glucose Point of Care 152 mg/dL (70-110)
[2020-02-27] VITALS (7 sets, daily range): BP systolic 129–142; BP diastolic 56–71; PULSE 82–94; RESP 16–24; TEMP 36.8–37.1; O2SAT 96–97
[2020-02-27] MEDS: TRAMadol 50 mg Tablet PO ×2 (02:59→12:06)
[2020-02-27 03:36] LABS: Basophils % 0.3 %; Eosinophils # 0.1 10^3/uL (0.0-0.8); Eosinophils % 0.9 %; Hematocrit 32.2 % (37.0-47.0); Hemoglobin 10.2 g/dL (11.5-15.3); Lymphocytes # 0.6 10^3/uL (0.8-4.8); Mean Corpuscular HGB Conc 31.7 g/dL (30.0-36.0); Mean Corpuscular Volume 94.7 fL (81-99); Mean Platelet Volume 8.8 fL (7.4-10.4); Monocytes # 0.5 10^3/uL (0.2-0.9); Monocytes % 4.4 %; Neutrophils # 10.34 10^3/uL (1.8-7.7); Neutrophils % 88.3 %; Nucleated Red Blood Cells % 0 %; Platelet Count 101 10^3/cmm (130-400); Red Cell Distribution Width 20.9 % (12.1-15.1); White Blood Count 11.7 10^3/uL (4.0-10.0)
[2020-02-27 04:06] LABS: Blood Urea Nitrogen 16 mg/dL (8-23); Calcium 7.7 mg/dL (8.5-10.5); Carbon Dioxide 16 mmol/L (22-29); Chloride 108 mmol/L (98-107); Glucose 120 mg/dL (65-115); Osmolality Calculated 276 mOsm/kg (285-295); Sodium 132 mmol/L (136-145)
[2020-02-27 04:11] LABS: Anion Gap 12.1 (5-19); Potassium 4.1 mmol/L (3.5-5.1)
[2020-02-27] MEDS: levofloxacin-dextrose 5 % 500 MG/100 ML PREMIX 100 MG IV (04:15)
[2020-02-27 06:43] LABS: Glucose Point of Care 111 mg/dL (70-110)
[2020-02-27] MEDS: morphine 4 mg/mL SDV 1 mL 2 MG IVP ×2 (07:49→15:33)
[2020-02-27] MEDS: fluticasone nasal spray 16gm Btl 2 SPRAY INTRANASAL (09:09)
[2020-02-27] MEDS: tamsulosin 0.4 mg Capsule PO (09:09)
[2020-02-27] MEDS: ferrous sulfate EC 325 mg Tablet PO (09:09)
[2020-02-27] MEDS: lactobacillus 1 Tablet 1 TAB PO (09:09)
--- NOTE | 2020-02-27 10:22 | XR_ITS ---
WS: [id number] CHEST XRAY TECHNIQUE: Portable chest. CLINICAL INFORMATION: PICC LINE PLACEMENT COMPARISON: None. FINDINGS: Left PICC line with tip in distal SVC. No pneumothorax. Heart: Normal cardiac silhouette. Lungs: Dense consolidation right upper lobe with cavitation. Pulmonary infiltrates and fluid extendin g along the right fissure. Advanced chronic emphysematous changes. Bones: Osteopenia. XR/XR chest 1V portable [id number] IMPRESSION: Left PICC line with tip in distal SVC. No pneumothorax.
[2020-02-27 11:04] LABS: Glucose Point of Care 167 mg/dL (70-110)
--- NOTE | 2020-02-27 13:08 | PM.DCS ---
Discharge Providers Date of Admission: 02/23/20 22:46 Date of Discharge: February 27, 2020 Attending Provider at Admission: Shila Lopez MD Attending Provider at Discharge: Jerry Garcia MD Diagnoses at Discharge Discharge Diagnosis (1) Infection due to Port-A-Cath: Status: Deleted Problem details: Eventually grew MRSA from tip of catheter. 12 more days of IV vancomycin prescribed. Reason for Visit Reason for Visit: POSSIBLE PORT INFECTION Hospital Course Hospital Course: Jerica is a 65-year-old white female who presented to the hospital with confusion, and exposed right Port-A-Cath with concern of infection. She was placed on IV antibiotics including vancomycin. She was noted to have acute kidney injury. She was hydrated. During the course of her hospital stay she gradually improved. Port was removed. Hemoglobin drifted down and she ultimately was given 3 units of packed red blood cells. No evidence of active bleeding. Patient reports she requires intermittent transfusions and has had full evaluation of any bleeding loss before and this was determined to be poor production of red blood cells. By the end of her hospital stay her tip of port had grown MRSA. She will complete 12 more days of IV antibiotics through PICC line that was placed on February 26. The decision will have to be made at that point whether to leave the PIC for potential chemotherapy and eventually convert to another port or to remove. She will need a trough before the next dose, and adjusted vancomycin per pharmacy at the nursing facility. Follow-up with primary care provider 3 to 5 days with CBC and CMP Physical Exam Narrative: EXAM NARRATIVE: General exam no apparent distress Cardiovascular regular rate and rhythm without murmur Lungs clear Abdomen is soft with positive bowel sounds Extremities no cyanosis clubbing or edema Discharge Data Data Completed and Pending: Completed Studies During Hospitalization Category Date Time Status CT chest wo con 7 1250 Urgent Cat Scan 02/23/20 13:[address] lumbar spine w o con* 67745 Routi ne Cat Scan 02/26/20 14:[address] thoracic spin wo con* 21409 Rout ine Cat Scan 02/26/20 14:33 Completed CXRP [XR chest 1V portable [id number]] R outine Exams 02/27/20 10:22 Completed US renal BI with bladder Routine Ultrasound 02/25/20 07:00 Completed Pending at discharge Category Date Time Status Blood Culture Sta t Lab 02/23/20 13:10 Results Vancomycin Trough Timed Lab 02/27/20 16:00 Ordered Labs from last 24 hours 02/27/20 02/27/20 02/27/20 11:00 06:31 02:35 WBC RBC Hgb Hct MCV MCH MCHC RDW Plt Count MPV Neut % (Auto) Lymph % (Auto) [place] % (Auto) Eos % (Auto) Baso % (Auto) Neut # (Auto) Lymph # (Auto) [place] # (Auto) Eos # (Auto) Baso # (Auto) Nucleated RBC % (a uto) Nucleated RBCs # Sodium 132 L Potassium 4.1 Chloride 108 H Carbon Dioxide 16 L Anion Gap 12.1 BUN 16 Creatinine 1.3 H GFR Calculation 41.0 L Glucose 120 H POC Glucose 167 111 Calculated Osmolal ity 276 L Calcium 7.7 L Blood Type Rho(D) Type Antibody Screen Crossmatch 02/27/20 02/26/20 02/26/20 02:35 20:50 17:35 WBC 11.7 H RBC 3.40 L Hgb 10.2 L D Hct 32.2 L D MCV 94.7 D MCH 30.0 MCHC 31.7 D RDW 20.9 H Plt Count 101 L MPV 8.8 Neut % (Auto) 88.3 Lymph % (Auto) 5.0 [place] % (Auto) 4.4 Eos % (Auto) 0.9 Baso % (Auto) 0.3 Neut # (Auto) 10.34 H Lymph # (Auto) 0.6 L [place] # (Auto) 0.5 Eos # (Auto) 0.1 Baso # (Auto) 0.0 Nucleated RBC % (a uto) 0 Nucleated RBCs # 0.0 Sodium Potassium Chloride Carbon Dioxide Anion Gap BUN Creatinine GFR Calculation Glucose POC Glucose 152 72 Calculated Osmolal ity Calcium Blood Type Rho(D) Type Antibody Screen Crossmatch 02/26/20 02/26/20 02/23/20 16:40 13:08 16:48 WBC RBC Hgb 6.8 L Hct 22.5 L MCV MCH MCHC RDW Plt Count MPV Neut % (Auto) Lymph % (Auto) [place] % (Auto) Eos % (Auto) Baso % (Auto) Neut # (Auto) Lymph # (Auto) [place] # (Auto) Eos # (Auto) Baso # (Auto) Nucleated RBC % (a uto) Nucleated RBCs # Sodium Potassium Chloride Carbon Dioxide Anion Gap BUN Creatinine GFR Calculation Glucose POC Glucose 62 Calculated Osmolal ity Calcium Blood Type A Positive Rho(D) Type Positive Antibody Screen Negative Crossmatch See Detail Vitals: Last Vital Signs Temp 98.5 F 02/27/20 11:55 Pulse 82 02/27/20 11:55 Resp 18 02/27/20 11:55 BP 142/67 02/27/20 11:55 Pulse Ox 97 02/27/20 11:55 Discharge Plan Discharge Patient Disposition: Xfer SNF Condition: Stable Prescriptions: New vancomycin 750 mg recon soln 750 mg IV Q48H 12 Days Qty: 6 RF: 0 Continued atorvastatin [Lipitor] 80 mg Tablet 80 mg PO BEDTIME RF: 0 trazodone 50 mg Tablet 50 mg PO BEDTIME RF: 0 polyethylene glycol 3350 [Miralax] 17 gram Powder In Packet 17 g PO Q3D RF: 0 ondansetron HCl [Zofran] 4 mg Tablet 4 mg PO Q4H PRN (Reason: Nausea) RF: 0 isosorbide mononitrate 30 mg Tablet Extended Release 24 Hr 15 mg PO DAILY RF: 0 loperamide [Imodium A-D] 2 mg Tablet 2 mg PO Q6H PRN (Reason: loose stools) RF: 0 tramadol 50 mg Tablet 50 mg PO Q6H RF: 0 magnesium oxide [MagOx] 400 mg (241.3 mg magnesium) Tablet 400 mg PO BID RF: 0 ferrous sulfate 325 mg (65 mg iron) Tablet 325 mg PO BID RF: 0 nitroglycerin [Nitrostat] 0.4 mg Tablet, Sublingual 0.4 mg SUBLINGUAL Q5M PRN (Reason: Chest Pain) RF: 0 fluticasone propionate [Flonase Allergy Relief] 50 mcg/actuation Aline,Suspension 2 spray INTRANASAL DAILY RF: 0 lorazepam [Lorazepam Intensol] 2 mg/mL Concentrate See Rx Instructions .ROUTE .COMPLEX RF: 0 cholecalciferol (vitamin D3) [Vitamin D3] 10 mcg (400 unit) Capsule 10 mcg PO DAILY RF: 0 potassium chloride 20 mEq Tablet Extended Release 20 meq PO DAILY RF: 0 Magic Mouthwash 15 ml PO TID PRN (Reason: unknown) RF: 0 Morphine Sulfate Anna 20mg/Ml 0.2 ml PO Q4H PRN (Reason: Pain) RF: 0 Discontinued sulfamethoxazole-trimethoprim [Bactrim DS] 800-160 mg Tablet 0.5 tab PO BID RF: 0 Discharge Orders: Discharge Order (Routine); Ordered 02/27/20 Ordered By: Jerry Garcia Discharge Diet: Usual diet Discharge Activity: Increase activity as tolerated Activity Restrictions/Additional Instructions: Continue IV antibiotics for 12 days. Vancomycin trough before next dose and adust dosing er pharmacy at [place] Follow up with PCP 3-5 days with CBC, CMP Keep follow up with oncology. 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
[2020-02-27 17:04] LABS: Vancomycin Trough 8.5 ug/mL (10-15)
== END 2020-02-27 16:05 | disposition skilled nursing facility (03) | DRG 314 ==
LOC: ER 20:57 → MEDSURG 23:32
PROVIDERS: Family Medicine; Surgery; Admitting Provider Hospitalist; Visit Provider Internal Medicine
PROC: 2W54XYZ Removal of Other Device on Chest Wall (ICD-10-PCS; CPT 36589; principal; 2020-02-24 10:00)
DX: T80.219A Unspecified infection due to central venous catheter, initial encounter (principal); G92 Toxic encephalopathy; N17.9 Acute kidney failure, unspecified; E44.0 Moderate protein-calorie malnutrition; N39.0 Urinary tract infection, site not specified; Z68.1 Body mass index [BMI] 19.9 or less, adult; L89.619 Pressure ulcer of right heel, unspecified stage; Z86.14 Personal history of Methicillin resistant Staphylococcus aureus infection; Z66 Do not resuscitate; C53.9 Malignant neoplasm of cervix uteri, unspecified; E78.5 Hyperlipidemia, unspecified; Y65.8 Other specified misadventures during surgical and medical care; Y92.89 Other specified places as the place of occurrence of the external cause; I25.10 Atherosclerotic heart disease of native coronary artery without angina pectoris; E11.22 Type 2 diabetes mellitus with diabetic chronic kidney disease; N18.9 Chronic kidney disease, unspecified; I12.9 Hypertensive chronic kidney disease with stage 1 through stage 4 chronic kidney disease, or unspecified chronic kidney disease; E11.51 Type 2 diabetes mellitus with diabetic peripheral angiopathy without gangrene; Z92.3 Personal history of irradiation; Z89.421 Acquired absence of other right toe(s)
CPT/HCPCS: 12345; 36415; 36416; 36430; 36569; 51702; 71045; 71250; 72128; 72131; 76770; 76857; 80048; 80053; 80202; 81001; 82274; 82962; 83605; 83735; 84100; 84550; 85014; 85018; 85025; 86140; 86850; 86900; 86920; 87040; 87070; 87075; 87077; 87086; 87186; 87205; 96372; 96375; 97161; 97167; 97535; 99282; J1815; J1956; J2270; J2370; J2704; J3370; J3490; J7030; J7050; P9016; Q0162